=== PATIENT | male | born 1955 | race Hispanic/Latino ===

== ENCOUNTER 2018-11-21 08:06 | Inpatient (IN) | payer MEDICARE ==
[2018-11-21] MEDS ORDERED: ASPIRIN PO ONE (08:22)
[2018-11-21] MEDS ORDERED: ATROVENT IH ONE (08:31)
[2018-11-21] MEDS ORDERED: PROVENTIL IH ONE (08:31)
--- NOTE | 2018-11-21 08:48 | Emergency Department Report ---
HPI - General Chief Complaint: Dyspnea/Respdistress Time Seen by Provider: 11/21/18 08:25 - HPI HPI: 63-year-old male presents to the emergency department by EMS from home with complaint of shortness of breath, wheezing, coughing. He says that it started earlier this week but worsened this morning to the point where he felt like he could not catch his breath. EMS found him to have a pulse ox in the high 80s and he was given a nonrebreather in route. Upon arrival here, he was taken off the nonrebreather and dropped back down again but does improve with nasal cannula as well. He has a past medical history of COPD, CHF, coronary artery disease with previous OH and cardiac stents in place. He is home oxygen dependent but "not 24 hours a day." He has been using his home nebulizer and inhalers without much relief. His primary care physician is Dr. Pool and his firer portable boiler is Dr. John. No recent travel or sick contacts at home. ED Past Medical Hx - Past Medical History Previous Medical History?: Yes Hx Hypertension: Yes Hx Congestive Heart Failure: Yes Hx COPD: Yes - Surgical History Past Surgical History?: Yes Hx Coronary Stent: Yes - Social History Smoking Status: Former Smoker Substance Use Type: None - Medications Home Medications: Home Medications Medication Instructions Recorded Confirmed Last Taken Type AtorvaSTATin [Lipitor] 40 mg PO QHS 11/21/18 11/21/18 11/20/18 History Carvedilol [Coreg] 6.25 mg PO BID 11/21/18 11/21/18 11/20/18 History Digoxin [Lanoxin] 250 mcg PO 11/21/18 11/20/18 History Fluticasone/Salmeterol [Advair 1 each IH 11/21/18 11/20/18 History 250-50 Diskus] Furosemide [Lasix] 20 mg PO QDAY 11/21/18 11/21/18 11/20/18 History Isosorbide Mononitrate 30 mg PO 11/21/18 11/21/18 10:13 History Pantoprazole Sodium 40 mg PO 11/21/18 11/20/18 History Roflumilast [Daliresp] 500 mcg PO QDAY 11/21/18 11/21/18 11/20/18 History Tiotropium [place] [Spiriva 2.5 gm IH 11/21/18 11/20/18 History Respimat] hydrALAZINE [Apresoline] 50 mg PO 11/21/18 11/20/18 History ED Review of Systems ROS: Stated complaint: LOUISA Other details as noted in HPI Comment: All other systems reviewed and negative Constitutional: denies: chills, fever Eyes: denies: eye pain, vision change ENT: denies: ear pain, throat pain Respiratory: cough, shortness of breath, wheezing Cardiovascular: denies: chest pain, palpitations Gastrointestinal: denies: abdominal pain, vomiting Genitourinary: denies: dysuria, frequency Musculoskeletal: denies: back pain, arthralgia Skin: denies: rash, lesions Neurological: denies: headache, weakness Physical Exam - Physical Exam Vital Signs: Vital Signs 11/21/18 08:27 Temperature 98.1 F Pulse Rate 99 H Respiratory 26 H Rate Blood Pressure 132/55 [Left] O2 Sat by Pulse 89 Oximetry Physical Exam: GENERAL: The patient is well-developed well-nourished. HENT: Normocephalic. Atraumatic. Patient has dry mucous membranes. EYES: Extraocular motions are intact. Pupils equal reactive to light bilaterally. NECK: Supple. Trachea is midline. CHEST/LUNGS: Moderate wheezing throughout the chest. There is some tachypnea but no accessory muscle use. There is no respiratory distress noted. HEART/CARDIOVASCULAR: Regular. There is no tachycardia. There is no murmur. ABDOMEN: Abdomen is soft, nontender. Patient has normal bowel sounds. There is no abdominal distention. SKIN: Mild bilateral lower extremity edema. NEURO: The patient is awake, alert, and cooperative. The patient has no focal neurologic deficits. The patient has normal speech. MUSCULOSKELETAL: There is no tenderness or deformity. There is no evidence of acute injury. ED Course Vital Signs 11/21/18 08:27 Temperature 98.1 F Pulse Rate 99 H Respiratory 26 H Rate Blood Pressure 132/55 [Left] O2 Sat by Pulse 89 Oximetry - Consultations Consultation #1: 11/21/18 14:37 I spoke with the property damage claims adjustor on-call, Dr. Cronin, regarding the patient's significant hyponatremia. He recommended giving D5 water at 50 mL per hour and then transitioning to allowing the patient to eat and drink and he will see the patient as a consult. ED Medical Decision Making - Lab Data Result diagrams: 11/21/18 08:33 11/21/18 12:03 - EKG Data -: EKG Interpreted by Me EKG shows normal: sinus rhythm, axis (left axis deviation), intervals (left anterior fascicular block), QRS complexes, ST-T waves (nonspecific ST-T waves) Rate: normal - EKG Data When compared to previous EKG there are: previous EKG unavailable Interpretation: other (sinus rhythm, left axis deviation, left anterior fascicular block) - Radiology Data Radiology results: report reviewed, image reviewed interpreted by me: Chest x-ray does not show any acute process. There are no pleural effusions, obvious pneumonia and there is no pneumothorax. There is hyperinflation of the lungs. PROCEDURE: NM LUNG SCAN PERF/VENT TECHNIQUE: 5 mCi Tc-99m MAA was injected IV for pulmonary perfusion imaging in multiple projections. 15 mCi Xenon-133 was inhaled for pulmonary ventilation imaging in multiple projections. HISTORY: SOB, elevated dimer COMPARISONS: Chest x-ray November 21, 2018. FINDINGS: Ventilation: Heterogeneous Perfusion: Subsegmental small matched perfusion deficits in both lungs. IMPRESSION: * Based on the PIOPED study, findings represent low probability for PE. * Suspect COPD. This document is electronically signed by Saturnino Ariza MD., Nov 21 2018 12:34:06 PM ET Transcribed By: TYM Dictated By: SATURNINO ARIZA MD Electronically Authenticated By: SATURNINO ARIZA MD Signed Date/Time: 11/21/18 123 - Medical Decision Making COPD patient presented to the emergency department with a complaint of some gradually worsening shortness of breath, wheezing and coughing. On examination he does have some moderate bronchospasm but does not appear in any respiratory distress. However the patient had an ABG done that showed significant hypercapnia and respiratory acidosis and the patient was placed on BiPAP. He was given steroids, breathing treatments. Patient's labs show a mild leukocytosis, slightly elevated and equivocal d-dimer and significant hypon atremia. The property damage claims adjustor [employer] examiner was contacted and the patient was started on D5 water and will be seen as a consult. The chest x-ray did not show any acute process. VQ scan was done and came back low probability for a pulmonary embolism. The patient will be admitted to the hospital for further evaluation and treatment and was accepted for admission by the hospitalist, Dr. Kelly. - Differential Diagnosis COPD, PE, asthma, pneumonia Critical Care Time: Yes Critical care time in (mins) excluding proc time.: 35 Critical care attestation.: If time is entered above; I have spent that time in minutes in the direct care of this critically ill patient, excluding procedure time. Medical care time was spent on this patient during his initial evaluation, multiple re-evaluations, ordering an interpretation of labs and imaging, discussion with the property damage claims adjustor and hospitalist services. Critical Care Time: 35 minutes ED Disposition Clinical Impression: COPD with exacerbation, Acute hypernatremia, SIRS (systemic inflammatory response syndrome) Disposition: OP ADMIT IP TO THIS HOSP Is pt being admited?: Yes Condition: Serious Time of Disposition: 14:41
[2018-11-21 09:10] LABS: Hematocrit 35.9 % (35.5-45.6); Mean Corpuscular HGB Conc 31 % (32-34); Mean Corpuscular Volume 73 fl (84-94); Platelet Count 252 K/mm3 (140-440); Red Blood Count 4.91 M/mm3 (3.65-5.03); Red Cell Distribution Width 18.1 % (13.2-15.2)
--- NOTE | 2018-11-21 09:14 | XRay Report ---
PROCEDURE: XR CHEST 1V AP TECHNIQUE: Chest radiograph, AP portable upright view. HISTORY: Chest Pain COMPARISONS: None currently available. FINDINGS: [id number] cardiomegaly. Aortic calcifications. There is no effusion. There is no pneumothorax. There is no consolidation. There are no suspicious osseous lesions. IMPRESSION: * No acute cardiopulmonary findings. This document is electronically signed by Saturnino Gillette MD., Nov 21 2018 09:12:36 AM ET
[2018-11-21 09:33] LABS: BUN/Creatinine Ratio 9; Blood Urea Nitrogen 12 mg/dL (9-20); Calcium 8.6 mg/dL (8.4-10.2); Hemolysis Index 2
[2018-11-21] MEDS ORDERED: D5W 1,000 ML IV SCH ×2 (11:00→13:00)
--- NOTE | 2018-11-21 12:09 | History and Physical Report ---
History of Present Illness Chief complaint: I cant breathe History of present illness: 63 YO Male with HTN, Systolic CHF, COPD, CAD S/P Stent Placement presents to ED for evaluation. Pt states that he has experienced shortness of breath, wheezing, and increased frequency of productive cough with increased production of clear sputum over the past 1 week with worsening symptoms over the past 1 day. Pt has worsening symptoms with increased frequency in use of nebulizer therapy. Pt acknowledges Orthopnea/PND, Decreased exercise tolerance, dypsnea on exertion, dypsnea at rest, as well as leg swelling. Pt was seen and evaluated by Dr. John and treated with outpatient therapy with no improvement in symptoms. EMS notified and upon arrival the patient was found to be in distress. Pt transported to [facility]. Pt seen and evaluated in ED and found to have Acute Respiratory Failure secondary to COPD Exacerbation. Pt also found to have symptoms consistent with CHF decompensation, SIRS and hypernatremia. Pt admitted to telemetry. Cardiology team consulted in ED. Pulmonary team consulted in ED. No prior admission for review. No medication listed for reconciliation at time of admission. Past History Past Medical History: CAD, COPD, heart failure, hypertension Past Surgical History: Other (Cardiac stent placement) Social history: , lives with family Family history: hypertension Medications and Allergies Allergies Allergy/AdvReac Type Severity Reaction Status Date / Time No Known Allergies Allergy Unverified 11/21/18 08:22 Home Medications Medication Instructions Recorded Confirmed Last Taken Type AtorvaSTATin [Lipitor] 40 mg PO QHS 11/21/18 11/21/18 11/20/18 History Carvedilol [Coreg] 6.25 mg PO BID 11/21/18 11/21/18 11/20/18 History Digoxin [Lanoxin] 250 mcg PO 11/21/18 11/20/18 History Fluticasone/Salmeterol [Advair 1 each IH 11/21/18 11/20/18 History 250-50 Diskus] Furosemide [Lasix] 20 mg PO QDAY 11/21/18 11/21/18 11/20/18 History Isosorbide Mononitrate 30 mg PO 11/21/18 11/21/18 10:13 History Pantoprazole Sodium 40 mg PO 11/21/18 11/20/18 History Roflumilast [Daliresp] 500 mcg PO QDAY 11/21/18 11/21/18 11/20/18 History Tiotropium [place] [Spiriva 2.5 gm IH 11/21/18 11/20/18 History Respimat] hydrALAZINE [Apresoline] 50 mg PO 11/21/18 11/20/18 History Active Meds: Active Medications Dextrose (D5w) 1,000 mls @ 50 mls/hr IV DIRECT ANNE Review of Systems Constitutional: no weight loss, no weight gain, no fever, no chills Ears, nose, mouth and throat: no ear pain, no ear discharge, no nose pain, no nasal congestion Cardiovascular: orthopnea, shortness of breath, dyspnea on exertion, paroxysmal nocturnal dyspnea, decreased exercise tolerance, no chest pain, no palpitations Respiratory: cough, cough with sputum, excessive sputum Gastrointestinal: no nausea, no vomiting, no diarrhea, no constipation Genitourinary Male: no hematuria, no flank pain, no discharge, no urinary frequency, no urinary hesitancy Rectal: no pain, no incontinence, no bleeding Musculoskeletal: no neck stiffness, no neck pain, no shooting arm pain, no arm numbness/tingling, no low back pain, no shooting leg pain Integumentary: no rash, no pruritis, no redness, no wounds Neurological: no paralysis, no weakness, no parathesias, no tingling Psychiatric: no memory loss, no change in sleep habits, no sleep disturbances, no insomnia, no change in appetite, no change in libido, no suicidal ideation Endocrine: no heat intolerance, no polyphagia, no excessive thirst, no polydipsia, no polyuria, no nocturia Hematologic/Lymphatic: no easy bruising, no easy bleeding Allergic/Immunologic: no urticaria, no allergic rhinitis, no wheezing Exam - Constitutional Vitals: Temp Pulse Resp BP Pulse Ox 98.1 F 80 24 160/70 96 11/21/18 08:27 11/21/18 09:43 11/21/18 09:43 11/21/18 09:43 11/21/18 09:43 General appearance: Present: mild distress - EENT Eyes: Present: PERRL ENT: hearing intact, clear oral mucosa - Neck Neck: Present: supple, normal ROM - Respiratory Respiratory effort: labored Respiratory: bilateral: diminished, rhonchi - Extremities Extremities: pulses symmetrical Extremity abnormal: edema Peripheral Pulses: within normal limits - Abdominal General gastrointestinal: Present: soft, non-tender, non-distended, normal bowel sounds Male genitourinary: Present: normal - Integumentary Integumentary: Present: clear, warm, dry - Psychiatric Psychiatric: appropriate mood/affect, intact judgment & insight - Neurologic Neurologic: CNII-XII intact, moves all extremities Results - Labs CBC & Chem 7: 11/21/18 08:33 11/21/18 12:03 Labs: Abnormal lab results 11/21/18 11/21/18 11/21/18 Range/Units 08:33 08:33 08:33 WBC 13.3 H (4.5-11.0) K/mm3 Hgb 11.0 L (11.8-15.2) gm/dl MCV 73 L (84-94) fl MCH 22 L (28-32) pg MCHC 31 L (32-34) % RDW 18.1 H (13.2-15.2) % D-Dimer 369.06 H (0-234) ng/mlDDU POC ABG pH (7.35-7.45) POC ABG pCO2 (35-45) POC ABG pO2 (80-105) Sodium 174 H* (137-145) mmol/L Potassium 5.3 H (3.6-5.0) mmol/L Chloride 128.8 H (98-107) mmol/L Carbon Dioxide 31 H (22-30) mmol/L Glucose 130 H (75-100) mg/dL NT-Pro-B Natriuret Pep (0-900) pg/mL 11/21/18 11/21/18 Range/Units 08:33 08:47 WBC (4.5-11.0) K/mm3 Hgb (11.8-15.2) gm/dl MCV (84-94) fl MCH (28-32) pg MCHC (32-34) % RDW (13.2-15.2) % D-Dimer (0-234) ng/mlDDU POC ABG pH 7.289 L (7.35-7.45) POC ABG pCO2 69.9 H (35-45) POC ABG pO2 73 L (80-105) Sodium (137-145) mmol/L Potassium (3.6-5.0) mmol/L Chloride (98-107) mmol/L Carbon Dioxide (22-30) mmol/L Glucose (75-100) mg/dL NT-Pro-B Natriuret Pep 1570 H (0-900) pg/mL Assessment and Plan - Patient Problems (1) CHF (congestive heart failure) Current Visit: Yes Status: Acute Qualifiers: Heart failure type: systolic Heart failure chronicity: acute Qualified Code(s): I50.21 - Acute systolic (congestive) heart failure Plan to address problem: CHF Protocol: Admit to telemetry, strict I/O, daily weight, monitor uop q shift, afterload reduction, cardiology consulted in ED, BNP, pulse oximetry, (2) SIRS (systemic inflammatory response syndrome) Current Visit: Yes Status: Acute Plan to address problem: IV antibiotic therapy, urinalysis, CBC, CMP, chest x ray, repeat CBC in AM. (3) Respiratory failure Current Visit: Yes Status: Acute Qualifiers: Chronicity: acute Respiratory failure complication: hypoxia Qualified Code(s): J96.01 - Acute respiratory failure with hypoxia Plan to address problem: Supplemental oxygen, nebulizer therapy, pulse oximetry, chest x ray, NIPPV, ABG. Pulmonary team consulted in ED, d dimer, VQ Scan (4) Hypernatremia Current Visit: Yes Status: Acute Plan to address problem: IVF resuscitation therapy, monitor uop q shift, Nephrology consulted in ED (5) COPD with exacerbation Current Visit: Yes Status: Acute Plan to address problem: Supplemental oxygen, NIPPV, ABG, Chest x ray, pulse oximetry, IV antibiotic therapy, IV steroid therapy, (6) DVT prophylaxis Current Visit: Yes Status: Acute Plan to address problem: SCD to BLE while in bed,
[2018-11-21] MEDS ORDERED: TYLENOL PO PRN (12:11)
[2018-11-21] MEDS ORDERED: ZOFRAN IV PRN (12:11)
[2018-11-21] MEDS ORDERED: PROVENTIL IH PRN (12:11)
[2018-11-21 12:22] LABS: Basophils % (Manual) 0 % (0.0-1.8); Eosinophils % (Manual) 0 % (0.0-4.3); Total Cells Counted 100
[2018-11-21 12:25] LABS: Platelet Estimate Consistent w Auto
--- NOTE | 2018-11-21 12:35 | Nuclear Medicine Report ---
PROCEDURE: NM LUNG SCAN PERF/VENT TECHNIQUE: 5 mCi Tc-99m MAA was injected IV for pulmonary perfusion imaging in multiple projections. 15 mCi Xenon-133 was inhaled for pulmonary ventilation imaging in multiple projections. HISTORY: SOB, elevated dimer COMPARISONS: Chest x-ray November 21, 2018. FINDINGS: Ventilation: Heterogeneous Perfusion: Subsegmental small matched perfusion deficits in both lungs. IMPRESSION: * Based on the PIOPED study, findings represent low probability for PE. * Suspect COPD. This document is electronically signed by Saturnino Gillette MD., Nov 21 2018 12:34:06 PM ET
--- NOTE | 2018-11-21 12:36 | Consultation ---
History of Present Illness - Reason for Consult Consult date: 11/21/18 acute renal failure, hypernatremia - History of Present Illness the patient is a 63 year old male with COPD was admitted today for worseening SOB, he required BIPAP in the ED for severe hypercappnia but since admission his sx slowly improved and he is off BIPAP, he was noted to have severe hypernatremia and renal consult was requested. he denies sx pf diabetes insipidus such as polyuria and excessive thirst Past History Past Medical History: COPD, hypertension Medications and Allergies Allergies Allergy/AdvReac Type Severity Reaction Status Date / Time No Known Allergies Allergy Unverified 11/21/18 08:22 Home Medications Medication Instructions Recorded Confirmed Last Taken Type AtorvaSTATin [Lipitor] 40 mg PO QHS 11/21/18 11/21/18 11/20/18 History Carvedilol [Coreg] 6.25 mg PO BID 11/21/18 11/21/18 11/20/18 History Digoxin [Lanoxin] 187.5 mcg PO 11/21/18 11/20/18 History Fluticasone/Salmeterol [Advair 1 each IH 11/21/18 11/20/18 History 250-50 Diskus] Furosemide [Lasix] 20 mg PO QDAY 11/21/18 11/21/18 11/20/18 History Isosorbide Mononitrate 30 mg PO 11/21/18 11/21/18 10:13 History Pantoprazole Sodium 40 mg PO 11/21/18 11/20/18 History Roflumilast [Daliresp] 500 mcg PO QDAY 11/21/18 11/21/18 11/20/18 History Tiotropium [place] [Spiriva 2.5 gm IH 11/21/18 11/20/18 History Respimat] hydrALAZINE [Apresoline] 50 mg PO 11/21/18 11/20/18 History Active Meds: Active Medications Acetaminophen (Tylenol) 650 mg PO Q4H PRN PRN Reason: Pain MILD(1-3)/Fever >100.5/BLOOM Albuterol (Proventil) 2.5 mg IH Q4HRT PRN PRN Reason: Shortness Of Breath Atorvastatin Calcium (Lipitor) 40 mg PO QHS ANNE Famotidine (Pepcid) 20 mg PO BID ANNE Furosemide (Lasix) 20 mg IV BID@0600,1800 ANNE Dextrose (D5w) 1,000 mls @ 50 mls/hr IV DIRECT ANNE Sodium Chloride (Nacl 0.45% 1000 Ml) 1,000 mls @ 42 mls/hr IV DIRECT ANNE Azithromycin 500 mg/ Sodium (Chloride) 250 mls @ 250 mls/hr IV Q24HR ANNE Dextrose (D5w) 1,000 mls @ 125 mls/hr IV DIRECT ANNE Methylprednisolone Sodium Succinate (Solu-Medrol) 40 mg IV Q12HR ANNE Miscellaneous Medication (Digoxin [Lanoxin]) 187.5 mcg PO DAILY ANNE Miscellaneous Medication (Roflumilast [Daliresp]) 500 mcg PO QDAY ANNE Ondansetron HCl (Zofran) 4 mg IV Q8H PRN PRN Reason: Nausea And Vomiting Pantoprazole Sodium (Protonix) 40 mg PO DAILY ANNE Sodium Chloride (Sodium Chloride Flush Syringe 10 Ml) 10 ml IV BID ANNE Sodium Chloride (Sodium Chloride Flush Syringe 10 Ml) 10 ml IV PRN PRN PRN Reason: LINE FLUSH Review of Systems All systems: negative (SOB, weakness) Exam - Vital Signs Vital signs: Vital Signs Temp Pulse Resp BP Pulse Ox 98.1 F 99 H 26 H 132/55 89 11/21/18 08:27 11/21/18 08:27 11/21/18 08:27 11/21/18 08:27 11/21/18 08:27 - General Appearance General appearance: well-developed, well-nourished EENT: ATNC, PERRL, mucous membranes dry Neck: Present: neck supple Respiratory: Ronchi, Wheezes, Decreased Breath Sounds Heart: regular, S1S2 Gastrointestinal: Present: normoactive bowel sounds. Absent: tenderness, distended Integumentary: no rash, warm and dry Neurologic: no focal deficit, no asterixis, alert and oriented x3 Musculoskeletal: Present: other (no edema in BLE) Psychiatric: mood/affect appropriate, cooperative Results - Lab Results 11/21/18 08:33 11/21/18 08:33 Most recent lab results Calcium 8.6 mg/dL (8.4-10.2) 11/21/18 08:33 Assessment and Plan Hyper-osm hypernatremia, likely due to low water intake, but will r/o DI Acute kidney injury, likely prerenal Azotemia COPD exacerbation history of CHF - total water deficit is around 12 L, will start D5W 125 cc/h which should not correct more than 10 mmol/ml, D5W should not also expand intravascular volume significantly - Na check Q6H - neuro checks - will check urine osm and lytes - strict I&O - daily weight - renally dose meds Jose Cronin MD [phone]
[2018-11-21 12:45] LABS: BUN/Creatinine Ratio 10; Blood Urea Nitrogen 11 mg/dL (9-20); Calcium 8.1 mg/dL (8.4-10.2); Hemolysis Index 12
[2018-11-21] MEDS ORDERED: NACL 0.45% 1000 ML 1,000 ML IV SCH (13:00)
[2018-11-21] MEDS ORDERED: LANOXIN PO SCH (17:00)
[2018-11-21] MEDS ORDERED: LASIX ONE ×2 (18:42→18:46)
[2018-11-21] MEDS: LASIX IV SCH (18:47)
--- NOTE | 2018-11-21 20:02 | Consultation ---
History of Present Illness Consult date: 11/21/18 Consult reason: shortness of breath History of present illness: Patient is having shortness of breath for last few days, has underlying lung disease being followed by Dr. John. He was evaluated a few days ago by Dr. John and was given antibiotics, however is still getting short of breath, hence he was evaluated in the emergency room was found to have hypercapnic respiratory failure. Patient is on BiPAP and is feeling better. Patient also was found to be hypernatremic. Chest x-ray done in the emergency room was unremarkable. We were called in consultation for evaluation of possible congestive heart failure. Patient denies any chest pain. Patient being followed in our office by Dr. Nora Ortega According to him and was last seen in June. However is not having any cardiac symptoms recently. EKG done in the emergency room showed sinus rhythm, left anterior fascicular block, diffuse nonspecific ST-T changes were noted. Past History Past Medical History: CAD, COPD, heart failure, hypertension Past Surgical History: Other (Cardiac stent placement) Social history: , lives with family Family history: hypertension Medications and Allergies Allergies Allergy/AdvReac Type Severity Reaction Status Date / Time No Known Allergies Allergy Unverified 11/21/18 08:22 Home Medications Medication Instructions Recorded Confirmed Last Taken Type AtorvaSTATin [Lipitor] 40 mg PO QHS 11/21/18 11/21/18 11/20/18 History Carvedilol [Coreg] 6.25 mg PO BID 11/21/18 11/21/18 11/20/18 History Digoxin [Lanoxin] 250 mcg PO 11/21/18 11/20/18 History Fluticasone/Salmeterol [Advair 1 each 11/21/18 11/20/18 History 250-50 Diskus] Furosemide [Lasix] 20 mg PO QDAY 11/21/18 11/21/18 11/20/18 History Isosorbide Mononitrate 30 mg PO 11/21/18 11/21/18 10:13 History Pantoprazole Sodium 40 mg PO 11/21/18 11/20/18 History Roflumilast [Daliresp] 500 mcg PO QDAY 11/21/18 11/21/18 11/20/18 History Tiotropium Dumont [Spiriva 2.5 gm 11/21/18 11/20/18 History Respimat] hydrALAZINE [Apresoline] 50 mg PO 11/21/18 11/20/18 History Active Meds: Active Medications Acetaminophen (Tylenol) 650 mg PO Q4H PRN PRN Reason: Pain MILD(1-3)/Fever >100.5/BLOOM Albuterol (Proventil) 2.5 mg IH Q4HRT PRN PRN Reason: Shortness Of Breath Atorvastatin Calcium (Lipitor) 40 mg PO QHS ANNE Famotidine (Pepcid) 20 mg PO BID ANNE Furosemide (Lasix) 20 mg IV BID@0600,1800 [facility] Last Admin: 11/21/18 18:47 Dose: 20 mg Documented by: Dextrose (D5w) 1,000 mls @ 50 mls/hr IV DIRECT ANNE Last Admin: 11/21/18 12:34 Dose: 50 mls/hr Documented by: Sodium Chloride (Nacl 0.45% 1000 Ml) 1,000 mls @ 42 mls/hr IV DIRECT ANNE Azithromycin 500 mg/ Sodium (Chloride) 250 mls @ 250 mls/hr IV Q24HR ANNE Dextrose (D5w) 1,000 mls @ 125 mls/hr IV DIRECT ANNE Methylprednisolone Sodium Succinate (Solu-Medrol) 40 mg IV Q12HR [facility] Miscellaneous Medication (Roflumilast [Daliresp]) 500 mcg PO QDAY ANNE Ondansetron HCl (Zofran) 4 mg IV Q8H PRN PRN Reason: Nausea And Vomiting Pantoprazole Sodium (Protonix) 40 mg PO DAILY [facility] Sodium Chloride (Sodium Chloride Flush Syringe 10 Ml) 10 ml IV BID ANNE Sodium Chloride (Sodium Chloride Flush Syringe 10 Ml) 10 ml IV PRN PRN PRN Reason: LINE FLUSH Review of Systems Ears, nose, mouth and throat: no ear discharge Cardiovascular: orthopnea, dyspnea on exertion, decreased exercise tolerance, no chest pain, no leg edema Respiratory: cough with sputum Gastrointestinal: no abdominal pain Genitourinary Male: no hematuria Musculoskeletal: no frequent falls Integumentary: no rash Neurological: no head injury Psychiatric: no disorientation Endocrine: no cold intolerance Hematologic/Lymphatic: no easy bruising Allergic/Immunologic: no urticaria Physical Examination Vital Signs Pulse 100 H 11/21/18 08:18 General appearance: mild distress (using BiPap.) HEENT: Positive: PERRL Neck: Positive: trachea midline Cardiac: Positive: Reg Rate and Rhythm. Negative: Audible Murmur Lungs: Positive: Decreased Breath Sounds Neuro: Positive: Grossly Intact Abdomen: Positive: Unremarkable Male genitourinary: Positive: deferred Skin: Negative: Rash Extremities: Absent: edema Results 11/21/18 08:33 11/21/18 18:34 CBC 11/21/18 Range/Units 08:33 WBC 13.3 H (4.5-11.0) K/mm3 RBC 4.91 (3.65-5.03) M/mm3 Hgb 11.0 L (11.8-15.2) gm/dl Hct 35.9 (35.5-45.6) % Plt Count 252 (140-440) K/mm3 Comprehensive Metabolic Panel 11/21/18 11/21/18 11/21/18 Range/Units 08:33 12:03 15:12 Sodium 174 H* 139 D 139 (137-145) mmol/L Potassium 5.3 H 4.9 (3.6-5.0) mmol/L Chloride 128.8 H 96.2 L (98-107) mmol/L Carbon Dioxide 31 H 31 H (22-30) mmol/L BUN 12 11 (9-20) mg/dL Creatinine 1.3 1.1 (0.8-1.5) mg/dL Glucose 130 H 112 H (75-100) mg/dL Calcium 8.6 8.1 L (8.4-10.2) mg/dL 11/21/18 Range/Units 18:34 Sodium 139 (137-145) mmol/L Potassium (3.6-5.0) mmol/L Chloride (98-107) mmol/L Carbon Dioxide (22-30) mmol/L BUN (9-20) mg/dL Creatinine (0.8-1.5) mg/dL Glucose (75-100) mg/dL Calcium (8.4-10.2) mg/dL EKG interpretations - Telemetry EKG Rhythm: Sinus Rhythm (EKG done in the emergency room showed sinus rhythm, left anterior fascicular block, diffuse nonspecific ST-T changes.) Assessment and Plan Patient's shortness of breath mostly appears to be related to his underlying lung problem. Superimposed diastolic heart failure cannot be excluded. Chest x-ray was unremarkable. And is responding well to BiPAP and his future treatments. Will continue the same. Patient is a underlying hypernatremia being corrected with D5W. EKG showing sinus rhythm and nonspecific ST-T changes. Patient was noted to have significant respiratory stenosis and hypercapnia at the time of presentation. This can be causing these changes. Will get serial enzymes. Cardiac-murray stable at this point. We'll get an echocardiogram considering his shortness of breath. - Patient Problems (1) Acute hypernatremia Current Visit: Yes Status: Acute (2) COPD with exacerbation Current Visit: Yes Status: Acute (3) Respiratory failure Current Visit: Yes Status: Acute Qualifiers: Chronicity: acute Respiratory failure complication: hypoxia Qualified Code(s): J96.01 - Acute respiratory failure with hypoxia (4) SIRS (systemic inflammatory response syndrome) Current Visit: Yes Status: Acute
[2018-11-21 22:46] LABS: Bilirubin,Urine NEG (Negative); Blood,Urine SM (Negative); Color,Urine Straw (Yellow); Hyaline Casts,Urine 1 /LPF; Mucus,Urine FEW /HPF; Protein,Urine <15 mg/dL mg/dL (Negative); Urobilinogen,Urine < 2.0 mg/dL (<2.0)
[2018-11-21 22:49] LABS: RBC,Urine < 1.0 /HPF (0.0-6.0)
[2018-11-21 23:06] LABS: Creatinine,Urine 30.5 mg/dL (0.1-20.0)
[2018-11-21] MEDS ORDERED: PEPCID ONE (23:22)
[2018-11-21] MEDS ORDERED: SOLU-Medrol ONE (23:22)
[2018-11-21] MEDS: PEPCID PO SCH (23:23)
[2018-11-21] MEDS: SODIUM CHLORIDE FLUSH SYRINGE 10 ML IV SCH (23:23)
[2018-11-21] MEDS: SOLU-Medrol IV SCH (23:24)
--- NOTE | 2018-11-21 23:47 | Event Note ---
downgrade to tele, off BIPAP
--- NOTE | 2018-11-21 23:47 | History and Physical Report ---
History of Present Illness Date of admission: 11/21/18 13:24 Past History Past Medical History: CAD, COPD, heart failure, hypertension Past Surgical History: Other (Cardiac stent placement) Social history: , lives with family Family history: hypertension Medications and Allergies Allergies Allergy/AdvReac Type Severity Reaction Status Date / Time No Known Allergies Allergy Unverified 11/21/18 08:22 Home Medications Medication Instructions Recorded Confirmed Last Taken Type AtorvaSTATin [Lipitor] 40 mg PO QHS 11/21/18 11/21/18 11/20/18 History Carvedilol [Coreg] 6.25 mg PO BID 11/21/18 11/21/18 11/20/18 History Digoxin [Lanoxin] 250 mcg PO 11/21/18 11/20/18 History Fluticasone/Salmeterol [Advair 1 each IH 11/21/18 11/20/18 History 250-50 Diskus] Furosemide [Lasix] 20 mg PO QDAY 11/21/18 11/21/18 11/20/18 History Isosorbide Mononitrate 30 mg PO 11/21/18 11/21/18 10:13 History Pantoprazole Sodium 40 mg PO 11/21/18 11/20/18 History Roflumilast [Daliresp] 500 mcg PO QDAY 11/21/18 11/21/18 11/20/18 History Tiotropium Leopold [Spiriva 2.5 gm IH 11/21/18 11/20/18 History Respimat] hydrALAZINE [Apresoline] 50 mg PO 11/21/18 11/20/18 History Active Meds: Active Medications Acetaminophen (Tylenol) 650 mg PO Q4H PRN PRN Reason: Pain MILD(1-3)/Fever >100.5/BLOOM Albuterol (Proventil) 2.5 mg IH Q4HRT PRN PRN Reason: Shortness Of Breath Atorvastatin Calcium (Lipitor) 40 mg PO QHS [facility] Last Admin: 11/21/18 23:23 Dose: 40 mg Documented by: Famotidine (Pepcid) 20 mg PO BID [facility] Last Admin: 11/21/18 23:23 Dose: 20 mg Documented by: Furosemide (Lasix) 20 mg IV BID@0600,1800 [facility] Last Admin: 11/21/18 18:47 Dose: 20 mg Documented by: Dextrose (D5w) 1,000 mls @ 50 mls/hr IV DIRECT ANNE Last Admin: 11/21/18 12:34 Dose: 50 mls/hr Documented by: Sodium Chloride (Nacl 0.45% 1000 Ml) 1,000 mls @ 42 mls/hr IV DIRECT ANNE Azithromycin 500 mg/ Sodium (Chloride) 250 mls @ 250 mls/hr IV Q24HR ANNE Dextrose (D5w) 1,000 mls @ 125 mls/hr IV DIRECT ANNE Methylprednisolone Sodium Succinate (Solu-Medrol) 40 mg IV Q12HR [facility] Last Admin: 11/21/18 23:24 Dose: 40 mg Documented by: Miscellaneous Medication (Roflumilast [Daliresp]) 500 mcg PO QDAY [facility] Ondansetron HCl (Zofran) 4 mg IV Q8H PRN PRN Reason: Nausea And Vomiting Pantoprazole Sodium (Protonix) 40 mg PO DAILY [facility] Sodium Chloride (Sodium Chloride Flush Syringe 10 Ml) 10 ml IV BID [facility] Last Admin: 11/21/18 23:23 Dose: 10 ml Documented by: Sodium Chloride (Sodium Chloride Flush Syringe 10 Ml) 10 ml IV PRN PRN PRN Reason: LINE FLUSH Exam - Constitutional Vitals: Temp Pulse Resp BP Pulse Ox 98.1 F 81 16 126/61 97 11/21/18 08:27 11/21/18 22:59 11/21/18 22:59 11/21/18 22:59 11/21/18 22:59 Results - Labs CBC & Chem 7: 11/21/18 08:33 11/21/18 18:34 Labs: Abnormal lab results 11/21/18 11/21/18 11/21/18 Range/Units 08:33 08:33 08:33 WBC 13.3 H (4.5-11.0) K/mm3 Hgb 11.0 L (11.8-15.2) gm/dl MCV 73 L (84-94) fl MCH 22 L (28-32) pg MCHC 31 L (32-34) % RDW 18.1 H (13.2-15.2) % Seg Neuts % (Manual) 96.0 H (40.0-70.0) % Lymphocytes % (Manual) 2.0 L (13.4-35.0) % Seg Neutrophils # Man 12.8 H (1.8-7.7) K/mm3 Lymphocytes # (Manual) 0.3 L (1.2-5.4) K/mm3 D-Dimer 369.06 H (0-234) ng/mlDDU POC ABG pH (7.35-7.45) POC ABG pCO2 (35-45) POC ABG pO2 (80-105) Sodium 174 H* (137-145) mmol/L Potassium 5.3 H (3.6-5.0) mmol/L Chloride 128.8 H (98-107) mmol/L Carbon Dioxide 31 H (22-30) mmol/L Glucose 130 H (75-100) mg/dL Calcium (8.4-10.2) mg/dL NT-Pro-B Natriuret Pep (0-900) pg/mL Urine Creatinine (0.1-20.0) mg/dL 11/21/18 11/21/18 11/21/18 Range/Units 08:33 08:47 12:03 WBC (4.5-11.0) K/mm3 Hgb (11.8-15.2) gm/dl MCV (84-94) fl MCH (28-32) pg MCHC (32-34) % RDW (13.2-15.2) % Seg Neuts % (Manual) (40.0-70.0) % Lymphocytes % (Manual) (13.4-35.0) % Seg Neutrophils # Man (1.8-7.7) K/mm3 Lymphocytes # (Manual) (1.2-5.4) K/mm3 D-Dimer (0-234) ng/mlDDU POC ABG pH 7.289 L (7.35-7.45) POC ABG pCO2 69.9 H (35-45) POC ABG pO2 73 L (80-105) Sodium (137-145) mmol/L Potassium (3.6-5.0) mmol/L Chloride 96.2 L (98-107) mmol/L Carbon Dioxide 31 H (22-30) mmol/L Glucose 112 H (75-100) mg/dL Calcium 8.1 L (8.4-10.2) mg/dL NT-Pro-B Natriuret Pep 1570 H (0-900) pg/mL Urine Creatinine (0.1-20.0) mg/dL 11/21/18 11/21/18 Range/Units 14:37 22:07 WBC (4.5-11.0) K/mm3 Hgb (11.8-15.2) gm/dl MCV (84-94) fl MCH (28-32) pg MCHC (32-34) % RDW (13.2-15.2) % Seg Neuts % (Manual) (40.0-70.0) % Lymphocytes % (Manual) (13.4-35.0) % Seg Neutrophils # Man (1.8-7.7) K/mm3 Lymphocytes # (Manual) (1.2-5.4) K/mm3 D-Dimer (0-234) ng/mlDDU POC ABG pH 7.332 L (7.35-7.45) POC ABG pCO2 62.8 H (35-45) POC ABG pO2 79 L (80-105) Sodium (137-145) mmol/L Potassium (3.6-5.0) mmol/L Chloride (98-107) mmol/L Carbon Dioxide (22-30) mmol/L Glucose (75-100) mg/dL Calcium (8.4-10.2) mg/dL NT-Pro-B Natriuret Pep (0-900) pg/mL Urine Creatinine 30.5 H (0.1-20.0) mg/dL
[2018-11-22 06:12] LABS: BUN/Creatinine Ratio 13; Blood Urea Nitrogen 12 mg/dL (9-20); Calcium 8.9 mg/dL (8.4-10.2); Hemolysis Index 11
[2018-11-22 06:20] LABS: Hematocrit 37.2 % (35.5-45.6); Hemoglobin 11.7 gm/dl (11.8-15.2); Mean Corpuscular HGB Conc 32 % (32-34); Mean Corpuscular Volume 72 fl (84-94); Platelet Count 234 K/mm3 (140-440); Red Blood Count 5.17 M/mm3 (3.65-5.03); Red Cell Distribution Width 17.8 % (13.2-15.2)
[2018-11-22] MEDS: LASIX IV SCH ×2 (08:01→17:16)
[2018-11-22 08:18] LABS: Basophils % (Manual) 0 % (0.0-1.8); Eosinophils % (Manual) 0 % (0.0-4.3); Platelet Estimate Consistent w Auto; Tear Drop Cells Few; Total Cells Counted 100
--- NOTE | 2018-11-22 09:19 | Progress Note ---
Assessment and Plan - Patient Problems (1) CHF (congestive heart failure) Exacerbation Current Visit: Yes Status: Acute Qualifiers: Heart failure type: systolic Heart failure chronicity: acute Qualified Code(s): I50.21 - Acute systolic (congestive) heart failure Plan to address problem: Improving ECHO ordered (2) SIRS (systemic inflammatory response syndrome) Current Visit: Yes Status: Acute Plan to address problem: IV antibiotic therapy, urinalysis, CBC, CMP, chest x ray, repeat CBC in AM. (3) Respiratory failure Current Visit: Yes Status: Acute Qualifiers: Chronicity: acute Respiratory failure complication: hypoxia Qualified Code(s): J96.01 - Acute respiratory failure with hypoxia Plan to address problem: Supplemental oxygen, nebulizer therapy, pulse oximetry, chest x ray, NIPPV, ABG. Pulmonary team consulted in ED, d dimer, VQ Scan (4) Hypernatremia Current Visit: Yes Status: Acute Plan to address problem: IVF resuscitation therapy, monitor uop q shift, Nephrology consulted in ED (5) COPD with exacerbation Current Visit: Yes Status: Acute Plan to address problem: Supplemental oxygen, NIPPV, ABG, Chest x ray, pulse oximetry, IV antibiotic therapy, IV steroid therapy, (6) DVT prophylaxis Current Visit: Yes Status: Acute Plan to address problem: SCD to BLE while in bed, Subjective Date of service: 11/22/18 Principal diagnosis: CHF exacerbation Interval history: Admitted for CHF and COPD exacerbation--Symptomatically better Objective - Constitutional Vitals: Vital Signs - 12hr 11/21/18 11/21/18 11/21/18 21:21 21:31 21:41 Temperature Pulse Rate 79 83 Pulse Rate [ Anterior Bilateral Throughout] Respiratory 16 15 Rate Respiratory Rate [Anterior Bilateral Throughout] Blood Pressure 143/65 143/65 143/65 Blood Pressure [Left] O2 Sat by Pulse 96 97 95 Oximetry 11/21/18 11/21/18 11/21/18 21:51 22:00 22:11 Temperature Pulse Rate 83 81 83 Pulse Rate [ Anterior Bilateral Throughout] Respiratory 14 16 15 Rate Respiratory Rate [Anterior Bilateral Throughout] Blood Pressure 143/65 126/61 126/61 Blood Pressure [Left] O2 Sat by Pulse 96 98 96 Oximetry 11/21/18 11/21/18 11/21/18 22:21 22:31 22:41 Temperature Pulse Rate Pulse Rate [ Anterior Bilateral Throughout] Respiratory Rate Respiratory Rate [Anterior Bilateral Throughout] Blood Pressure 126/61 126/61 126/61 Blood Pressure [Left] O2 Sat by Pulse 94 98 98 Oximetry 11/21/18 11/21/18 11/21/18 22:51 22:59 23:00 Temperature Pulse Rate 81 80 Pulse Rate [ Anterior Bilateral Throughout] Respiratory 16 14 Rate Respiratory Rate [Anterior Bilateral Throughout] Blood Pressure 126/61 149/65 Blood Pressure 126/61 [Left] O2 Sat by Pulse 98 97 96 Oximetry 11/21/18 11/21/18 11/21/18 23:11 23:21 23:31 Temperature Pulse Rate 80 Pulse Rate [ Anterior Bilateral Throughout] Respiratory 13 Rate Respiratory Rate [Anterior Bilateral Throughout] Blood Pressure 149/65 149/65 149/65 Blood Pressure [Left] O2 Sat by Pulse 97 95 94 Oximetry 11/21/18 11/21/18 11/22/18 23:41 23:51 00:01 Temperature Pulse Rate Pulse Rate [ Anterior Bilateral Throughout] Respiratory Rate Respiratory Rate [Anterior Bilateral Throughout] Blood Pressure 149/65 149/65 141/57 Blood Pressure [Left] O2 Sat by Pulse 96 96 92 Oximetry 11/22/18 11/22/18 11/22/18 00:11 00:21 00:31 Temperature Pulse Rate Pulse Rate [ Anterior Bilateral Throughout] Respiratory Rate Respiratory Rate [Anterior Bilateral Throughout] Blood Pressure 141/57 141/57 141/57 Blood Pressure [Left] O2 Sat by Pulse 96 96 95 Oximetry 11/22/18 11/22/18 11/22/18 00:36 00:53 01:20 Temperature 98.4 F Pulse Rate 87 89 88 Pulse Rate [ Anterior Bilateral Throughout] Respiratory 19 22 Rate Respiratory Rate [Anterior Bilateral Throughout] Blood Pressure 92/70 Blood Pressure 141/57 [Left] O2 Sat by Pulse 96 93 Oximetry 11/22/18 11/22/18 11/22/18 01:31 01:45 02:40 Temperature Pulse Rate 84 Pulse Rate [ 97 H Anterior Bilateral Throughout] Respiratory 22 20 Rate Respiratory 22 Rate [Anterior Bilateral Throughout] Blood Pressure Blood Pressure [Left] O2 Sat by Pulse 92 93 Oximetry 11/22/18 11/22/18 11/22/18 02:50 02:53 04:17 Temperature 98.4 F Pulse Rate 87 85 Pulse Rate [ 90 Anterior Bilateral Throughout] Respiratory 20 21 Rate Respiratory 20 Rate [Anterior Bilateral Throughout] Blood Pressure 133/71 Blood Pressure [Left] O2 Sat by Pulse 92 90 Oximetry 11/22/18 11/22/18 08:16 08:37 Temperature 98.0 F Pulse Rate Pulse Rate [ Anterior Bilateral Throughout] Respiratory 18 18 Rate Respiratory Rate [Anterior Bilateral Throughout] Blood Pressure 130/64 Blood Pressure [Left] O2 Sat by Pulse Oximetry General appearance: Present: no acute distress, well-nourished - EENT Eyes: PERRL, EOM intact ENT: hearing intact, clear oral mucosa Ears: bilateral: normal - Neck Neck: supple, normal ROM - Respiratory Respiratory effort: normal Respiratory: bilateral: CTA, rales - Breasts Breasts: normal - Cardiovascular Heart rate: 78 Rhythm: regular Heart Sounds: Present: S1 & S2. Absent: gallop, rub Extremities: pulses intact, No edema, normal color, Full ROM - Gastrointestinal General gastrointestinal: Present: soft, non-tender, non-distended, normal bowel sounds - Genitourinary Male genitourinary: normal - Integumentary Integumentary: clear, warm, dry - Musculoskeletal Musculoskeletal: 1, strength equal bilaterally - Neurologic Neurologic: moves all extremities - Psychiatric Psychiatric: memory intact, appropriate mood/affect, intact judgment & insight - Labs CBC & Chem 7: 11/23/18 04:34 11/23/18 04:34 Labs: Abnormal lab results 11/21/18 11/21/18 11/21/18 Range/Units 08:33 08:33 08:33 WBC (4.5-11.0) K/mm3 RBC (3.65-5.03) M/mm3 Hgb (11.8-15.2) gm/dl MCV (84-94) fl MCH (28-32) pg RDW (13.2-15.2) % Seg Neuts % (Manual) 96.0 H (40.0-70.0) % Lymphocytes % (Manual) 2.0 L (13.4-35.0) % Seg Neutrophils # Man 12.8 H (1.8-7.7) K/mm3 Lymphocytes # (Manual) 0.3 L (1.2-5.4) K/mm3 D-Dimer 369.06 H (0-234) ng/mlDDU POC ABG pH (7.35-7.45) POC ABG pCO2 (35-45) POC ABG pO2 (80-105) Sodium 174 H* (137-145) mmol/L Potassium 5.3 H (3.6-5.0) mmol/L Chloride 128.8 H (98-107) mmol/L Carbon Dioxide 31 H (22-30) mmol/L Glucose 130 H (75-100) mg/dL Calcium (8.4-10.2) mg/dL NT-Pro-B Natriuret Pep (0-900) pg/mL Urine Creatinine (0.1-20.0) mg/dL 11/21/18 11/21/18 11/21/18 Range/Units 08:33 12:03 14:37 WBC (4.5-11.0) K/mm3 RBC (3.65-5.03) M/mm3 Hgb (11.8-15.2) gm/dl MCV (84-94) fl MCH (28-32) pg RDW (13.2-15.2) % Seg Neuts % (Manual) (40.0-70.0) % Lymphocytes % (Manual) (13.4-35.0) % Seg Neutrophils # Man (1.8-7.7) K/mm3 Lymphocytes # (Manual) (1.2-5.4) K/mm3 D-Dimer (0-234) ng/mlDDU POC ABG pH 7.332 L (7.35-7.45) POC ABG pCO2 62.8 H (35-45) POC ABG pO2 79 L (80-105) Sodium (137-145) mmol/L Potassium (3.6-5.0) mmol/L Chloride 96.2 L (98-107) mmol/L Carbon Dioxide 31 H (22-30) mmol/L Glucose 112 H (75-100) mg/dL Calcium 8.1 L (8.4-10.2) mg/dL NT-Pro-B Natriuret Pep 1570 H (0-900) pg/mL Urine Creatinine (0.1-20.0) mg/dL 11/21/18 11/22/18 11/22/18 Range/Units 22:07 04:32 04:32 WBC 15.0 H (4.5-11.0) K/mm3 RBC 5.17 H (3.65-5.03) M/mm3 Hgb 11.7 L (11.8-15.2) gm/dl MCV 72 L (84-94) fl MCH 23 L (28-32) pg RDW 17.8 H (13.2-15.2) % Seg Neuts % (Manual) 97.0 H (40.0-70.0) % Lymphocytes % (Manual) 2.0 L (13.4-35.0) % Seg Neutrophils # Man 14.6 H (1.8-7.7) K/mm3 Lymphocytes # (Manual) 0.3 L (1.2-5.4) K/mm3 D-Dimer (0-234) ng/mlDDU POC ABG pH (7.35-7.45) POC ABG pCO2 (35-45) POC ABG pO2 (80-105) Sodium (137-145) mmol/L Potassium (3.6-5.0) mmol/L Chloride 94.2 L (98-107) mmol/L Carbon Dioxide (22-30) mmol/L Glucose 137 H (75-100) mg/dL Calcium (8.4-10.2) mg/dL NT-Pro-B Natriuret Pep (0-900) pg/mL Urine Creatinine 30.5 H (0.1-20.0) mg/dL
[2018-11-22] MEDS ORDERED: NON-FORMULARY (Roflumilast [Daliresp] 500 MCG) PO SCH (10:00)
[2018-11-22] MEDS ORDERED: DIGOXIN PO SCH (10:00)
[2018-11-22] MEDS ORDERED: NON-FORMULARY (Pantoprazole Sodium 40 MG) PO SCH (10:00)
--- NOTE | 2018-11-22 10:25 | Progress Note ---
Assessment and Plan Currently stable cardiac status. Pt still with dyspnea and wheezing, had a bout of left-sided stabbing cp this morning. Pt reports h/o CAD with multiple PCIs. F/u echo. EKG shows sinus rhythm and nonspecific ST-T changes, Quentin negative for AMI. Can consider stress test once medically stabilized. Pt is regularly followed by Dr. Cruzito Pierce with [facility]. Will transfer cardiology service to [facility] for continuity of care. The patient has been seen in conjunction with Dr. Mcclain who agrees with the assessment and plan of care. - Patient Problems (1) COPD with exacerbation Current Visit: Yes Status: Acute (2) Acute and chronic respiratory failure Current Visit: Yes Status: Acute (3) CAD (coronary artery disease) Current Visit: Yes Status: Chronic (4) Stented coronary artery Current Visit: Yes Status: Chronic (5) Hypernatremia Current Visit: Yes Status: Resolved (6) HTN (hypertension) Current Visit: Yes Status: Chronic (7) Obesity Current Visit: Yes Status: Chronic Subjective Date of service: 11/22/18 Principal diagnosis: COPD exac Interval history: pt resting in bed, still with SOB although he says dyspnea is improving. had a bout of left-sided stabbing cp this morning. Objective Last Vital Signs Temp 98.0 F 11/22/18 08:16 Pulse 85 11/22/18 04:17 Resp 18 11/22/18 08:37 BP 130/64 11/22/18 08:16 Pulse Ox 90 11/22/18 04:17 - Physical Examination General: No Apparent Distress HEENT: Positive: PERRL Neck: Positive: trachea midline Cardiac: Positive: Reg Rate and Rhythm, S1/S2 Lungs: Positive: Decreased Breath Sounds, Wheezes Neuro: Positive: Grossly Intact Abdomen: Positive: Unremarkable Skin: Negative: Rash Extremities: Absent: edema - Labs and Meds CBC 11/22/18 Range/Units 04:32 WBC 15.0 H (4.5-11.0) K/mm3 RBC 5.17 H (3.65-5.03) M/mm3 Hgb 11.7 L (11.8-15.2) gm/dl Hct 37.2 (35.5-45.6) % Plt Count 234 (140-440) K/mm3 Comprehensive Metabolic Panel 11/21/18 11/21/18 11/21/18 Range/Units 12:03 15:12 18:34 Sodium 139 D 139 139 (137-145) mmol/L Potassium 4.9 (3.6-5.0) mmol/L Chloride 96.2 L (98-107) mmol/L Carbon Dioxide 31 H (22-30) mmol/L BUN 11 (9-20) mg/dL Creatinine 1.1 (0.8-1.5) mg/dL Glucose 112 H (75-100) mg/dL Calcium 8.1 L (8.4-10.2) mg/dL 11/22/18 11/22/18 Range/Units 00:45 04:32 Sodium 140 140 (137-145) mmol/L Potassium 4.6 (3.6-5.0) mmol/L Chloride 94.2 L (98-107) mmol/L Carbon Dioxide 30 (22-30) mmol/L BUN 12 (9-20) mg/dL Creatinine 0.9 (0.8-1.5) mg/dL Glucose 137 H (75-100) mg/dL Calcium 8.9 (8.4-10.2) mg/dL
[2018-11-22] MEDS: SOLU-Medrol IV SCH ×3 (10:56→17:16)
[2018-11-22] MEDS: PROTONIX PO SCH (10:56)
[2018-11-22] MEDS: SODIUM CHLORIDE FLUSH SYRINGE 10 ML IV SCH ×2 (10:56→21:45)
[2018-11-22] MEDS: PEPCID PO SCH ×2 (10:56→21:45)
--- NOTE | 2018-11-22 13:11 | Progress Note ---
Assessment and Plan Hyper-osm Hypernatremia: -Sodium level noted to be 140 on recent lab draw -Yesterday's level started at 174 -D5W@ 125 ml/hr discontinued -On Lasix 20 mg IV BID -On serial sodium levels every 6 hours -On Neuro checks every 4 hours COPD exacerbation: -On Nebulizer treatments -On IV Azithromycin -On IV Solumedrol -As per Pulmonary CHF/CAD: -Echocardiogram pending -On Lasix 20 mg IV BID -Cardiology onboard Hypertension: -Blood pressures are controlled -Reconcile home medications Subjective Date of service: 11/22/18 Principal diagnosis: COPD exac Interval history: Patient seen sitting up in bed about to eat lunch. States does not like hospital food. at bedside. Reviewed renal plan of care. Objective - Vital Signs Vital signs: Vital Signs - 12hr 11/22/18 11/22/18 11/22/18 01:20 01:31 01:45 Temperature Pulse Rate 88 84 Pulse Rate [ Anterior Bilateral Throughout] Respiratory 22 20 Rate Respiratory Rate [Anterior Bilateral Throughout] Blood Pressure O2 Sat by Pulse 92 93 Oximetry 11/22/18 11/22/18 11/22/18 02:40 02:50 02:53 Temperature Pulse Rate 87 Pulse Rate [ 97 H 90 Anterior Bilateral Throughout] Respiratory 20 Rate Respiratory 22 20 Rate [Anterior Bilateral Throughout] Blood Pressure O2 Sat by Pulse 92 Oximetry 11/22/18 11/22/18 11/22/18 04:17 08:16 08:37 Temperature 98.4 F 98.0 F Pulse Rate 85 Pulse Rate [ Anterior Bilateral Throughout] Respiratory 21 18 18 Rate Respiratory Rate [Anterior Bilateral Throughout] Blood Pressure 133/71 130/64 O2 Sat by Pulse 90 Oximetry - General Appearance General appearance: well-developed, appears stated age EENT: ATNC, PERRL, hearing intact, vision intact Neck: no JVD, supple Respiratory: Present: Decreased Breath Sounds Cardiology: regular, S1S2 Gastrointestinal: normoactive bowel sounds Integumentary: warm and dry Neurologic: alert and oriented x3 Musculoskeletal: other (No edema) Psychiatric: cooperative - Lab 11/22/18 04:32 11/22/18 04:32 Most recent lab results Calcium 8.9 mg/dL (8.4-10.2) 11/22/18 04:32 Phosphorus 2.50 mg/dL (2.5-4.5) 11/22/18 04:32 30.5 mg/dL (0.1-20.0) H 11/21/18 22:07 98 mmol/L 11/21/18 22:07 Medications & Allergies - Medications Allergies/Adverse Reactions: Allergies No Known Allergies Allergy (Unverified 11/21/18 08:22) Home Medications: Home Medications Medication Instructions Recorded Confirmed Last Taken Type AtorvaSTATin [Lipitor] 40 mg PO QHS 11/21/18 11/21/18 11/20/18 History Carvedilol [Coreg] 6.25 mg PO BID 11/21/18 11/21/18 11/20/18 History Digoxin [Lanoxin] 250 mcg PO 11/21/18 11/20/18 History Fluticasone/Salmeterol [Advair 1 each IH 11/21/18 11/20/18 History 250-50 Diskus] Furosemide [Lasix] 20 mg PO QDAY 11/21/18 11/21/18 11/20/18 History Isosorbide Mononitrate 30 mg PO 11/21/18 11/21/18 10:13 History Pantoprazole Sodium 40 mg PO 11/21/18 11/20/18 History Roflumilast [Daliresp] 500 mcg PO QDAY 11/21/18 11/21/18 11/20/18 History Tiotropium [place] [Spiriva 2.5 gm IH 11/21/18 11/20/18 History Respimat] hydrALAZINE [Apresoline] 50 mg PO 11/21/18 11/20/18 History Active Medications: Generic Name Dose Route Start Last Admin Trade Name Freq PRN Reason Stop Dose Admin Acetaminophen 650 mg 11/21/18 12:11 Tylenol PO Q4H PRN Pain MILD(1-3)/Fever >100.5/BLOOM Albuterol 2.5 mg 11/21/18 12:11 11/22/18 02:51 Proventil IH 2.5 mg Q4HRT PRN Administration Shortness Of Breath Arformoterol Tartrate 15 mcg 11/22/18 13:15 Brodeliaa Nebu IH Q12HRT ANNE Atorvastatin Calcium 40 mg 11/21/18 22:00 11/21/18 23:23 Lipitor PO 40 mg QHS ANNE Administration Budesonide 0.5 mg 11/22/18 13:15 Pulmicort IH Q12HRT [facility] Famotidine 20 mg 11/21/18 22:00 11/22/18 10:56 Pepcid PO 20 mg BID ANNE Administration Furosemide 20 mg 11/21/18 18:00 11/22/18 08:01 Lasix IV 20 mg BID@0600,1800 [facility] Administration Azithromycin 500 mg/ Sodium 250 mls @ 250 mls/hr 11/22/18 10:00 Chloride IV Q24HR [facility] Methylprednisolone Sodium Succinate 60 mg 11/22/18 14:00 Solu-Medrol IV Q6HR [facility] Miscellaneous Medication 500 mcg 11/22/18 10:00 Roflumilast [Daliresp] PO QDAY [facility] Ondansetron HCl 4 mg 11/21/18 12:11 Zofran IV Q8H PRN Nausea And Vomiting Pantoprazole Sodium 40 mg 11/22/18 10:00 11/22/18 10:56 Protonix PO 40 mg DAILY ANNE Administration Sodium Chloride 10 ml 11/21/18 22:00 11/22/18 10:56 Sodium Chloride Flush Syringe 10 Ml IV 10 ml BID ANNE Administration Sodium Chloride 10 ml 11/21/18 12:11 Sodium Chloride Flush Syringe 10 Ml IV PRN PRN LINE FLUSH
--- NOTE | 2018-11-22 13:22 | Event Note ---
Date: 11/22/18 Patient off floor for echo but at bedside. Confirms that patient has COPD and sounds like central sleep apnea as per he has a bipap at home that he wears every night. Per , saw Alvaro a week ago for "follow up". From what I could not get from the . He still had a cough and Alvaro treated with abx but no steroids. Per , cough is what made everything worse. Remainder not obtainable as not in room. Reviewed the chart and added BID pulmicort and brovana and increased steroids to 60q6. Patient takes advair and spiriva at home. Will attempt to reassess later today.
[2018-11-22] MEDS ORDERED: SOLU-Medrol IV SCH (14:00)
[2018-11-22] MEDS: ZITHROMAX 500 MG in NACL 0.9% 250ML 250 ML IV SCH (14:11)
--- NOTE | 2018-11-22 14:18 | Progress Note ---
Subjective Date of service: 11/22/18 Principal diagnosis: COPD exac Objective - Constitutional Vitals: Vital Signs - 12hr 11/22/18 11/22/18 11/22/18 02:40 02:50 02:53 Temperature Pulse Rate 87 Pulse Rate [ 97 H 90 Anterior Bilateral Throughout] Respiratory 20 Rate Respiratory 22 20 Rate [Anterior Bilateral Throughout] Blood Pressure O2 Sat by Pulse 92 Oximetry 11/22/18 11/22/18 11/22/18 04:17 08:16 08:37 Temperature 98.4 F 98.0 F Pulse Rate 85 Pulse Rate [ Anterior Bilateral Throughout] Respiratory 21 18 18 Rate Respiratory Rate [Anterior Bilateral Throughout] Blood Pressure 133/71 130/64 O2 Sat by Pulse 90 Oximetry - Labs CBC & Chem 7: 11/22/18 04:32 11/22/18 04:32 Labs: Abnormal lab results 11/21/18 11/21/18 11/22/18 Range/Units 14:37 22:07 04:32 WBC 15.0 H (4.5-11.0) K/mm3 RBC 5.17 H (3.65-5.03) M/mm3 Hgb 11.7 L (11.8-15.2) gm/dl MCV 72 L (84-94) fl MCH 23 L (28-32) pg RDW 17.8 H (13.2-15.2) % Seg Neuts % (Manual) 97.0 H (40.0-70.0) % Lymphocytes % (Manual) 2.0 L (13.4-35.0) % Seg Neutrophils # Man 14.6 H (1.8-7.7) K/mm3 Lymphocytes # (Manual) 0.3 L (1.2-5.4) K/mm3 POC ABG pH 7.332 L (7.35-7.45) POC ABG pCO2 62.8 H (35-45) POC ABG pO2 79 L (80-105) Chloride (98-107) mmol/L Glucose (75-100) mg/dL Urine Creatinine 30.5 H (0.1-20.0) mg/dL 11/22/18 Range/Units 04:32 WBC (4.5-11.0) K/mm3 RBC (3.65-5.03) M/mm3 Hgb (11.8-15.2) gm/dl MCV (84-94) fl MCH (28-32) pg RDW (13.2-15.2) % Seg Neuts % (Manual) (40.0-70.0) % Lymphocytes % (Manual) (13.4-35.0) % Seg Neutrophils # Man (1.8-7.7) K/mm3 Lymphocytes # (Manual) (1.2-5.4) K/mm3 POC ABG pH (7.35-7.45) POC ABG pCO2 (35-45) POC ABG pO2 (80-105) Chloride 94.2 L (98-107) mmol/L Glucose 137 H (75-100) mg/dL Urine Creatinine (0.1-20.0) mg/dL
[2018-11-22] MEDS: PULMICORT IH SCH ×2 (14:36→20:57)
[2018-11-22] MEDS: BROVANA NEBU IH SCH ×2 (14:36→20:57)
[2018-11-23] MEDS: SOLU-Medrol IV SCH ×4 (00:21→17:39)
[2018-11-23 04:54] LABS: Hemoglobin 11.6 gm/dl (11.8-15.2); Mean Corpuscular HGB Conc 31 % (32-34); Mean Corpuscular Volume 72 fl (84-94); Platelet Count 280 K/mm3 (140-440); Red Blood Count 5.15 M/mm3 (3.65-5.03); Red Cell Distribution Width 17.2 % (13.2-15.2)
[2018-11-23 05:11] LABS: BUN/Creatinine Ratio 21; Blood Urea Nitrogen 23 mg/dL (9-20); Calcium 8.2 mg/dL (8.4-10.2); Hemolysis Index 3
[2018-11-23] MEDS: LASIX IV SCH ×2 (05:50→17:40)
[2018-11-23 06:21] LABS: Basophils % (Manual) 0 % (0.0-1.8); Eosinophils % (Manual) 0 % (0.0-4.3); Platelet Estimate Consistent w Auto; Total Cells Counted 100
[2018-11-23] MEDS: PEPCID PO SCH ×2 (09:20→21:08)
[2018-11-23] MEDS: SODIUM CHLORIDE FLUSH SYRINGE 10 ML IV SCH ×2 (09:20→21:08)
[2018-11-23] MEDS: ZITHROMAX 500 MG in NACL 0.9% 250ML 250 ML IV SCH (09:20)
[2018-11-23] MEDS: PROTONIX PO SCH (09:20)
[2018-11-23] MEDS: BROVANA NEBU IH SCH ×2 (09:32→20:09)
[2018-11-23] MEDS: PULMICORT IH SCH ×2 (09:32→20:09)
--- NOTE | 2018-11-23 10:12 | Progress Note ---
Assessment and Plan Assessment and plan: (1) CHF (congestive heart failure) Exacerbation Current Visit: Yes Status: Acute Qualifiers: Heart failure type: systolic Heart failure chronicity: acute Qualified Code(s): I50.21 - Acute systolic (congestive) heart failure Plan to address problem: Improving , ECHO 45-50%, continue anti-failure medications (2) SIRS (systemic inflammatory response syndrome) Current Visit: Yes Status: Acute Plan to address problem: IV antibiotic therapy, urinalysis, CBC, CMP, chest x ray, repeat CBC in AM. (3) Respiratory failure Current Visit: Yes Status: Acute Qualifiers: Chronicity: acute Respiratory failure complication: hypoxia Qualified Code(s): J96.01 - Acute respiratory failure with hypoxia Plan to address problem: Supplemental oxygen, nebulizer therapy, pulse oximetry, chest x ray, NIPPV, ABG. Pulmonary team consulted in ED, d dimer, VQ Scan (4) Hypernatremia Current Visit: Yes Status: Acute Plan to address problem: IVF resuscitation therapy, corrected Nephrology following (5) COPD with exacerbation Current Visit: Yes Status: Acute Plan to address problem: Supplemental oxygen, NIPPV, ABG, Chest x ray, pulse oximetry, IV antibiotic therapy, IV steroid therapy, (6) DVT prophylaxis Current Visit: Yes Status: Acute Plan to address problem: SCD to BLE while in bed, History Interval history: Patient seen and examined medical records reviewed Patient feels slightly better no new complaints Vital signs noted Hospitalist Physical - Constitutional Vitals: Temp Pulse Resp BP Pulse Ox 97.7 F 88 17 139/65 94 11/23/18 03:31 11/23/18 09:36 11/23/18 09:36 11/23/18 03:31 11/23/18 09:30 General appearance: Present: no acute distress, well-nourished - EENT Eyes: Present: PERRL, EOM intact - Neck Neck: Present: supple, normal ROM - Respiratory Respiratory effort: normal Respiratory: bilateral: diminished, negative: rales, rhonchi, wheezing - Cardiovascular Rhythm: regular Heart Sounds: Present: S1 & S2 - Extremities Extremities: no ischemia, No edema - Abdominal General gastrointestinal: soft, non-tender, non-distended, normal bowel sounds - Integumentary Integumentary: Present: clear, warm - Psychiatric Psychiatric: appropriate mood/affect, cooperative - Neurologic Neurologic: CNII-XII intact, moves all extremities Results - Labs CBC & Chem 7: 11/23/18 04:34 11/23/18 04:34 Labs: Laboratory Last Values WBC 11.6 K/mm3 (4.5-11.0) H 11/23/18 04:34 RBC 5.15 M/mm3 (3.65-5.03) H 11/23/18 04:34 Hgb 11.6 gm/dl (11.8-15.2) L 11/23/18 04:34 Hct 37.0 % (35.5-45.6) 11/23/18 04:34 MCV 72 fl (84-94) L 11/23/18 04:34 MCH 23 pg (28-32) L 11/23/18 04:34 MCHC 31 % (32-34) L 11/23/18 04:34 RDW 17.2 % (13.2-15.2) H 11/23/18 04:34 Plt Count 280 K/mm3 (140-440) 11/23/18 04:34 Add Manual Diff Complete 11/23/18 04:34 Total Counted 100 11/23/18 04:34 Seg Neutrophils % [employer] Tr[employer] Apprentice 11/23/18 04:34 Seg Neuts % (Manual) 96.0 % (40.0-70.0) H 11/23/18 04:34 0 % 11/23/18 04:34 3.0 % (13.4-35.0) L 11/23/18 04:34 Reactive Lymphs % (Man) 0 % 11/23/18 04:34 1.0 % (0.0-7.3) 11/23/18 04:34 0 % (0.0-4.3) 11/23/18 04:34 0 % (0.0-1.8) 11/23/18 04:34 0 % 11/23/18 04:34 0 % 11/23/18 04:34 0 % 11/23/18 04:34 0 % 11/23/18 04:34 Nucleated RBC % Not Reportable 11/23/18 04:34 Seg Neutrophils # Man 11.1 K/mm3 (1.8-7.7) H 11/23/18 04:34 Band Neutrophils # 0.0 K/mm3 11/23/18 04:34 0.3 K/mm3 (1.2-5.4) L 11/23/18 04:34 Abs React Lymphs (Man) 0.0 K/mm3 11/23/18 04:34 0.1 K/mm3 (0.0-0.8) 11/23/18 04:34 0.0 K/mm3 (0.0-0.4) 11/23/18 04:34 0.0 K/mm3 (0.0-0.1) 11/23/18 04:34 0.0 K/mm3 11/23/18 04:34 0.0 K/mm3 11/23/18 04:34 0.0 K/mm3 11/23/18 04:34 Blast Cells # 0.0 K/mm3 11/23/18 04:34 WBC Morphology Not Reportable 11/23/18 04:34 WBC Morphology TNR 11/23/18 04:34 Hypersegmented Neuts Not Reportable 11/23/18 04:34 Hyposegmented Neuts Not Reportable 11/23/18 04:34 Hypogranular Neuts Not Reportable 11/23/18 04:34 Not Reportable 11/23/18 04:34 Not Reportable 11/23/18 04:34 Not Reportable 11/23/18 04:34 Not Reportable 11/23/18 04:34 Not Reportable 11/23/18 04:34 Not Reportable 11/23/18 04:34 Consistent w auto 11/23/18 04:34 Not Reportable 11/23/18 04:34 Plt Clumps, EDTA Not Reportable 11/23/18 04:34 Not Reportable 11/23/18 04:34 Not Reportable 11/23/18 04:34 Not Reportable 11/23/18 04:34 Plt Morphology Comment Not Reportable 11/23/18 04:34 RBC Morphology Not Reportable 11/23/18 04:34 Dimorphic RBCs Not Reportable 11/23/18 04:34 Not Reportable 11/23/18 04:34 Not Reportable 11/23/18 04:34 Not Reportable 11/23/18 04:34 Not Reportable 11/23/18 04:34 Not Reportable 11/23/18 04:34 Not Reportable 11/23/18 04:34 Not Reportable 11/23/18 04:34 Not Reportable 11/23/18 04:34 Not Reportable 11/23/18 04:34 Not Reportable 11/23/18 04:34 Not Reportable 11/23/18 04:34 Not Reportable 11/23/18 04:34 Not Reportable 11/23/18 04:34 Not Reportable 11/23/18 04:34 Not Reportable 11/23/18 04:34 Not Reportable 11/23/18 04:34 Not Reportable 11/23/18 04:34 Not Reportable 11/23/18 04:34 Not Reportable 11/23/18 04:34 Acanthocytes (Spur) Not Reportable 11/23/18 04:34 Rouleaux Not Reportable 11/23/18 04:34 Not Reportable 11/23/18 04:34 Not Reportable 11/23/18 04:34 Not Reportable 11/23/18 04:34 Not Reportable 11/23/18 04:34 Hem Pathologist Commnt No 11/23/18 04:34 369.06 ng/mlDDU (0-234) H 11/21/18 08:33 POC ABG pH 7.332 (7.35-7.45) L 11/21/18 14:37 POC ABG pCO2 62.8 (35-45) H 11/21/18 14:37 POC ABG pO2 79 (80-105) L 11/21/18 14:37 POC ABG HCO3 33.3 (22-26 mml/L) 11/21/18 14:37 POC ABG Total CO2 35 (23-27mmol/L) 11/21/18 14:37 POC ABG O2 Sat 94 11/21/18 14:37 POC ABG Base Excess 7 ((-2) - (+3)mmol/L) 11/21/18 14:37 30 % 11/21/18 14:37 Sodium 138 mmol/L (137-145) 11/23/18 04:34 Potassium 4.6 mmol/L (3.6-5.0) 11/23/18 04:34 Chloride 92.6 mmol/L (98-107) L 11/23/18 04:34 Carbon Dioxide 37 mmol/L (22-30) H D 11/23/18 04:34 13 mmol/L 11/23/18 04:34 BUN 23 mg/dL (9-20) H 11/23/18 04:34 1.1 mg/dL (0.8-1.5) 11/23/18 04:34 Estimated GFR > 60 ml/min 11/23/18 04:34 21 % 11/23/18 04:34 Glucose 177 mg/dL (75-100) H 11/23/18 04:34 Calcium 8.2 mg/dL (8.4-10.2) L 11/23/18 04:34 Phosphorus 3.40 mg/dL (2.5-4.5) D 11/23/18 04:34 < 0.010 ng/mL (0.00-0.029) 11/22/18 10:07 NT-Pro-B Natriuret Pep 1570 pg/mL (0-900) H 11/21/18 08:33 Straw (Yellow) 11/21/18 22:07 Clear (Clear) 11/21/18 22:07 5.0 (5.0-7.0) 11/21/18 22:07 Ur Specific [place] 1.008 (1.003-1.030) 11/21/18 22:07 <15 mg/dl mg/dL (Negative) 11/21/18 22:07 Neg mg/dL (Negative) 11/21/18 22:07 Neg mg/dL (Negative) 11/21/18 22:07 Sm (Negative) 11/21/18 22:07 Neg (Negative) 11/21/18 22:07 Neg (Negative) 11/21/18 22:07 < 2.0 mg/dL (<2.0) 11/21/18 22:07 Ur Leukocyte Esterase Neg (Negative) 11/21/18 22:07 1.0 /HPF (0.0-6.0) 11/21/18 22:07 < 1.0 /HPF (0.0-6.0) 11/21/18 22:07 U Epithel Cells (Auto) < 1.0 /HPF (0-13.0) 11/21/18 22:07 Hyaline Casts 1 /LPF 11/21/18 22:07 Few /HPF 11/21/18 22:07 325 Mosm/kg 11/21/18 22:07 30.5 mg/dL (0.1-20.0) H 11/21/18 22:07 98 mmol/L 11/21/18 22:07 Active Medications - Current Medications Current Medications: Generic Name Dose Route Start Last Admin Trade Name Freq PRN Reason Stop Dose Admin Acetaminophen 650 mg 11/21/18 12:11 Tylenol PO Q4H PRN Pain MILD(1-3)/Fever >100.5/BLOOM Albuterol 2.5 mg 11/21/18 12:11 11/22/18 02:51 Proventil IH 2.5 mg Q4HRT PRN Administration Shortness Of Breath Arformoterol Tartrate 15 mcg 11/22/18 13:15 11/23/18 09:32 Brovana Nebu IH 15 mcg Q12HRT ANNE Administration Atorvastatin Calcium 40 mg 11/21/18 22:00 11/22/18 21:44 Lipitor PO 40 mg QHS ANNE Administration Budesonide 0.5 mg 11/22/18 13:15 11/23/18 09:32 Pulmicort IH 0.5 mg Q12HRT ANNE Administration Famotidine 20 mg 11/21/18 22:00 11/23/18 09:20 Pepcid PO 20 mg BID ANNE Administration Furosemide 20 mg 11/21/18 18:00 11/23/18 05:50 Lasix IV 20 mg BID@0600,1800 ANNE Administration Azithromycin 500 mg/ Sodium 250 mls @ 250 mls/hr 11/22/18 10:00 11/23/18 09 :20 Chloride IV 250 mls/hr Q24HR ANNE Administration Methylprednisolone Sodium Succinate 60 mg 11/22/18 14:00 11/23/18 05:50 Solu-Medrol IV 60 mg Q6HR ANNE Administration Miscellaneous Medication 500 mcg 11/22/18 10:00 Roflumilast [Daliresp] PO QDAY ANNE Ondansetron HCl 4 mg 11/21/18 12:11 Zofran IV Q8H PRN Nausea And Vomiting Pantoprazole Sodium 40 mg 11/22/18 10:00 11/23/18 09:20 Protonix PO 40 mg DAILY ANNE Administration Sodium Chloride 10 ml 11/21/18 22:00 11/23/18 09:20 Sodium Chloride Flush Syringe 10 Ml IV 10 ml BID ANNE Administration Sodium Chloride 10 ml 11/21/18 12:11 Sodium Chloride Flush Syringe 10 Ml IV PRN PRN LINE FLUSH
--- NOTE | 2018-11-23 12:56 | Progress Note ---
Assessment and Plan Hyper-osm Hypernatremia: -resolved, elevated Na on admission likely was a lab error, sodium was corrected without IVF within 4 hours COPD exacerbation: -On Nebulizer treatments -On IV Azithromycin -On IV Solumedrol -As per Pulmonary CHF/CAD: -On Lasix 20 mg IV BID -Cardiology onboard Hypertension: -Blood pressures are controlled -Reconcile home medications will sign off, please re consult if needed Subjective Date of service: 11/23/18 Principal diagnosis: CHF exacerbation Interval history: comfortable denies acute issues Objective - Vital Signs Vital signs: Vital Signs - 12hr 11/23/18 11/23/18 11/23/18 03:31 09:30 09:36 Temperature 97.7 F Pulse Rate 72 Pulse Rate [ 86 88 Anterior Bilateral Throughout] Respiratory 22 Rate Respiratory 20 17 Rate [Anterior Bilateral Throughout] Blood Pressure 139/65 O2 Sat by Pulse 96 94 Oximetry - General Appearance General appearance: well-developed, well-nourished EENT: ATNC, PERRL, mucous membranes moist Neck: no JVD, no carotid bruit Respiratory: Present: Decreased Breath Sounds Cardiology: regular, S1S2 Gastrointestinal: normoactive bowel sounds, no tenderness, no distended Integumentary: no rash, warm and dry Neurologic: no focal deficit, no asterixis, alert and oriented x3 Musculoskeletal: other (no edema in BLE) Psychiatric: mood/affect appropriate, cooperative - Lab 11/23/18 04:34 11/23/18 04:34 Most recent lab results Calcium 8.2 mg/dL (8.4-10.2) L 11/23/18 04:34 Phosphorus 3.40 mg/dL (2.5-4.5) D 11/23/18 04:34 30.5 mg/dL (0.1-20.0) H 11/21/18 22:07 98 mmol/L 11/21/18 22:07 Medications & Allergies - Medications Allergies/Adverse Reactions: Allergies No Known Allergies Allergy (Unverified 11/21/18 08:22) Home Medications: Home Medications Medication Instructions Recorded Confirmed Last Taken Type AtorvaSTATin [Lipitor] 40 mg PO QHS 11/21/18 11/21/18 11/20/18 History Carvedilol [Coreg] 6.25 mg PO BID 11/21/18 11/21/18 11/20/18 History Digoxin [Lanoxin] 250 mcg PO 11/21/18 11/20/18 History Fluticasone/Salmeterol [Advair 1 each IH 11/21/18 11/20/18 History 250-50 Diskus] Furosemide [Lasix] 20 mg PO QDAY 11/21/18 11/21/18 11/20/18 History Isosorbide Mononitrate 30 mg PO 11/21/18 11/21/18 10:13 History Pantoprazole Sodium 40 mg PO 11/21/18 11/20/18 History Roflumilast [Daliresp] 500 mcg PO QDAY 11/21/18 11/21/18 11/20/18 History Tiotropium [place] [Spiriva 2.5 gm IH 11/21/18 11/20/18 History Respimat] hydrALAZINE [Apresoline] 50 mg PO 11/21/18 11/20/18 History Active Medications: Generic Name Dose Route Start Last Admin Trade Name Freq PRN Reason Stop Dose Admin Acetaminophen 650 mg 11/21/18 12:11 Tylenol PO Q4H PRN Pain MILD(1-3)/Fever >100.5/BLOOM Albuterol 2.5 mg 11/21/18 12:11 11/22/18 02:51 Proventil IH 2.5 mg Q4HRT PRN Administration Shortness Of Breath Arformoterol Tartrate 15 mcg 11/22/18 13:15 11/23/18 09:32 Brovana Nebu IH 15 mcg Q12HRT ANNE Administration Atorvastatin Calcium 40 mg 11/21/18 22:00 11/22/18 21:44 Lipitor PO 40 mg QHS ANNE Administration Budesonide 0.5 mg 11/22/18 13:15 11/23/18 09:32 Pulmicort IH 0.5 mg Q12HRT ANNE Administration Famotidine 20 mg 11/21/18 22:00 11/23/18 09:20 Pepcid PO 20 mg BID ANNE Administration Furosemide 20 mg 11/21/18 18:00 11/23/18 05:50 Lasix IV 20 mg BID@0600,1800 ANNE Administration Azithromycin 500 mg/ Sodium 250 mls @ 250 mls/hr 11/22/18 10:00 11/23/18 09:20 Chloride IV 250 mls/hr Q24HR ANNE Administration Methylprednisolone Sodium Succinate 60 mg 11/22/18 14:00 11/23/18 12:31 Solu-Medrol IV 60 mg Q6HR ANNE Administration Miscellaneous Medication 500 mcg 11/22/18 10:00 Roflumilast [Daliresp] PO QDAY ANNE Ondansetron HCl 4 mg 11/21/18 12:11 Zofran IV Q8H PRN Nausea And Vomiting Pantoprazole Sodium 40 mg 11/22/18 10:00 11/23/18 09:20 Protonix PO 40 mg DAILY ANNE Administration Sodium Chloride 10 ml 11/21/18 22:00 11/23/18 09:20 Sodium Chloride Flush Syringe 10 Ml IV 10 ml BID ANNE Administration Sodium Chloride 10 ml 11/21/18 12:11 Sodium Chloride Flush Syringe 10 Ml IV PRN PRN LINE FLUSH
--- NOTE | 2018-11-23 15:55 | Consultation ---
History of Present Illness Consult date: 11/23/18 Requesting physician: GERMAIN COSTA Reason for consult: COPD History of present illness: 63 y/o male with known COPD, admitted with worsening shortness of breath. Saw my partner, Alvaro a week ago. Treated with abx no steroids. STarted to feel better but then over the weekend felt worse so came in. No fever, no sick contacts. Positive wheezing and coughing some light green sputum. Past History Past Medical History: CAD, COPD, heart failure, hypertension Past Surgical History: Other (Cardiac stent placement) Social history: , lives with family Family history: hypertension Medications and Allergies Allergies Allergy/AdvReac Type Severity Reaction Status Date / Time No Known Allergies Allergy Unverified 11/21/18 08:22 Home Medications Medication Instructions Recorded Confirmed Last Taken Type AtorvaSTATin [Lipitor] 40 mg PO QHS 11/21/18 11/21/18 11/20/18 History Carvedilol [Coreg] 6.25 mg PO BID 11/21/18 11/21/18 11/20/18 History Digoxin [Lanoxin] 250 mcg PO 11/21/18 11/20/18 History Fluticasone/Salmeterol [Advair 1 each IH 11/21/18 11/20/18 History 250-50 Diskus] Furosemide [Lasix] 20 mg PO QDAY 11/21/18 11/21/18 11/20/18 History Isosorbide Mononitrate 30 mg PO 11/21/18 11/21/18 10:13 History Pantoprazole Sodium 40 mg PO 11/21/18 11/20/18 History Roflumilast [Daliresp] 500 mcg PO QDAY 11/21/18 11/21/18 11/20/18 History Tiotropium Topping [Spiriva 2.5 gm IH 11/21/18 11/20/18 History Respimat] hydrALAZINE [Apresoline] 50 mg PO 11/21/18 11/20/18 History Active Meds: Active Medications Acetaminophen (Tylenol) 650 mg PO Q4H PRN PRN Reason: Pain MILD(1-3)/Fever >100.5/BLOOM Albuterol (Proventil) 2.5 mg IH Q4HRT PRN PRN Reason: Shortness Of Breath Last Admin: 11/22/18 02:51 Dose: 2.5 mg Documented by: Arformoterol Tartrate (Brovana Nebu) 15 mcg IH Q12HRT [facility] Last Admin: 11/23/18 09:32 Dose: 15 mcg Documented by: Atorvastatin Calcium (Lipitor) 40 mg PO QHS [facility] Last Admin: 11/22/18 21:44 Dose: 40 mg Documented by: Budesonide (Pulmicort) 0.5 mg IH Q12HRT [facility] Last Admin: 11/23/18 09:32 Dose: 0.5 mg Documented by: Famotidine (Pepcid) 20 mg PO BID [facility] Last Admin: 11/23/18 09:20 Dose: 20 mg Documented by: Furosemide (Lasix) 20 mg IV BID@0600,1800 [facility] Last Admin: 11/23/18 05:50 Dose: 20 mg Documented by: Azithromycin 500 mg/ Sodium (Chloride) 250 mls @ 250 mls/hr IV Q24HR [facility] Last Admin: 11/23/18 09:20 Dose: 250 mls/hr Documented by: Methylprednisolone Sodium Succinate (Solu-Medrol) 60 mg IV Q6HR [facility] Last Admin: 11/23/18 12:31 Dose: 60 mg Documented by: Miscellaneous Medication (Roflumilast [Daliresp]) 500 mcg PO QDAY [facility] Ondansetron HCl (Zofran) 4 mg IV Q8H PRN PRN Reason: Nausea And Vomiting Pantoprazole Sodium (Protonix) 40 mg PO DAILY [facility] Last Admin: 11/23/18 09:20 Dose: 40 mg Documented by: Sodium Chloride (Sodium Chloride Flush Syringe 10 Ml) 10 ml IV BID [facility] Last Admin: 11/23/18 09:20 Dose: 10 ml Documented by: Sodium Chloride (Sodium Chloride Flush Syringe 10 Ml) 10 ml IV PRN PRN PRN Reason: LINE FLUSH Review of Systems All systems: negative Physical Examination Vital signs: Vital Signs Pulse 100 H 11/21/18 08:18 General appearance: no acute distress, alert Eyes: non-icteric ENT: other (poor dentition) Neck: supple Effort: normal Ascultation: Bilateral: diminished breath sounds, wheezes Percussion: Bilateral: not dull Tactile fremitus: Bilateral: normal Cardiovascular: regular rate and rhythm Gastrointestinal: normoactive bowel sounds, soft, non-tender Results - Laboratory Findings CBC and BMP: 11/23/18 04:34 11/23/18 04:34 ABG POC ABG pH 7.332 (7.35-7.45) L 11/21/18 14:37 POC ABG pCO2 62.8 (35-45) H 11/21/18 14:37 POC ABG pO2 79 (80-105) L 11/21/18 14:37 POC ABG HCO3 33.3 (22-26 mml/L) 11/21/18 14:37 POC ABG Total CO2 35 (23-27mmol/L) 11/21/18 14:37 POC ABG O2 Sat 94 11/21/18 14:37 PT/INR, D-dimer 369.06 ng/mlDDU (0-234) H 11/21/18 08:33 Abnormal lab findings: Abnormal Labs 11/21/18 11/21/18 11/21/18 08:33 08:33 08:33 WBC 13.3 H RBC Hgb 11.0 L MCV 73 L MCH 22 L MCHC 31 L RDW 18.1 H Seg Neuts % (Manual) 96.0 H Lymphocytes % (Manual) 2.0 L Seg Neutrophils # Man 12.8 H Lymphocytes # (Manual) 0.3 L D-Dimer 369.06 H POC ABG pH POC ABG pCO2 POC ABG pO2 Sodium 174 H* Potassium 5.3 H Chloride 128.8 H Carbon Dioxide 31 H BUN Glucose 130 H Calcium NT-Pro-B Natriuret Pep Urine Creatinine 11/21/18 11/21/18 11/21/18 08:33 08:47 12:03 WBC RBC Hgb MCV MCH MCHC RDW Seg Neuts % (Manual) Lymphocytes % (Manual) Seg Neutrophils # Man Lymphocytes # (Manual) D-Dimer POC ABG pH 7.289 L POC ABG pCO2 69.9 H POC ABG pO2 73 L Sodium Potassium Chloride 96.2 L Carbon Dioxide 31 H BUN Glucose 112 H Calcium 8.1 L NT-Pro-B Natriuret Pep 1570 H Urine Creatinine 11/21/18 11/21/18 11/22/18 14:37 22:07 04:32 WBC 15.0 H RBC 5.17 H Hgb 11.7 L MCV 72 L MCH 23 L MCHC RDW 17.8 H Seg Neuts % (Manual) 97.0 H Lymphocytes % (Manual) 2.0 L Seg Neutrophils # Man 14.6 H Lymphocytes # (Manual) 0.3 L D-Dimer POC ABG pH 7.332 L POC ABG pCO2 62.8 H POC ABG pO2 79 L Sodium Potassium Chloride Carbon Dioxide BUN Glucose Calcium NT-Pro-B Natriuret Pep Urine Creatinine 30.5 H 11/22/18 11/22/18 11/23/18 04:32 20:28 04:34 WBC 11.6 H RBC 5.15 H Hgb 11.6 L MCV 72 L MCH 23 L MCHC 31 L RDW 17.2 H Seg Neuts % (Manual) 96.0 H Lymphocytes % (Manual) 3.0 L Seg Neutrophils # Man 11.1 H Lymphocytes # (Manual) 0.3 L D-Dimer POC ABG pH POC ABG pCO2 POC ABG pO2 Sodium 136 L Potassium Chloride 94.2 L Carbon Dioxide BUN Glucose 137 H Calcium NT-Pro-B Natriuret Pep Urine Creatinine 11/23/18 04:34 WBC RBC Hgb MCV MCH MCHC RDW Seg Neuts % (Manual) Lymphocytes % (Manual) Seg Neutrophils # Man Lymphocytes # (Manual) D-Dimer POC ABG pH POC ABG pCO2 POC ABG pO2 Sodium Potassium Chloride 92.6 L Carbon Dioxide 37 H D BUN 23 H Glucose 177 H Calcium 8.2 L NT-Pro-B Natriuret Pep Urine Creatinine - Diagnostic Findings Chest x-ray: image reviewed (hyperinflation with no evidence of acute intraparenchymal lung disease) Assessment and Plan 63 y/o male with acute exacerbation of COPD 1. continue solumedrol 60q6 2. Added BID pulmicort and brovana 3. Agree with diuresis given echo results. Pulmonary HTN can be treated with diuretics. (mild) 4. Supplemental O2
[2018-11-24] MEDS: SOLU-Medrol IV SCH ×5 (00:06→23:51)
[2018-11-24] MEDS: SODIUM CHLORIDE FLUSH SYRINGE 10 ML IV PRN ×3 (00:07→23:52)
[2018-11-24] MEDS: LASIX IV SCH ×2 (05:14→18:14)
[2018-11-24 07:12] LABS: Hematocrit 35.4 % (35.5-45.6); Mean Corpuscular HGB Conc 31 % (32-34); Mean Corpuscular Volume 71 fl (84-94); Platelet Count 314 K/mm3 (140-440); Red Cell Distribution Width 17.7 % (13.2-15.2)
[2018-11-24 07:44] LABS: BUN/Creatinine Ratio 26; Blood Urea Nitrogen 31 mg/dL (9-20); Calcium 8.3 mg/dL (8.4-10.2); Hemolysis Index 14
[2018-11-24] MEDS: BROVANA NEBU IH SCH ×2 (08:11→20:14)
[2018-11-24] MEDS: PULMICORT IH SCH ×2 (08:13→20:14)
[2018-11-24] MEDS: SODIUM CHLORIDE FLUSH SYRINGE 10 ML IV SCH ×2 (09:50→21:50)
[2018-11-24] MEDS: PROTONIX PO SCH (09:50)
[2018-11-24] MEDS: PEPCID PO SCH ×2 (09:50→21:49)
[2018-11-24] MEDS: ZITHROMAX 500 MG in NACL 0.9% 250ML 250 ML IV SCH (09:50)
[2018-11-24] MEDS ORDERED: SOLU-Medrol IV SCH (10:29)
--- NOTE | 2018-11-24 10:29 | Progress Note ---
Assessment and Plan Assessment and plan: --Acute Mild systolic CHF Symptoms Improving , ECHO 45-50%, continue anti-failure medications Cardiology following -- SIRS (systemic inflammatory response syndrome) IV antibiotic therapy, urinalysis, CBC, CMP, chest x ray, repeat CBC in AM. --Acute hypoxic Respiratory failure Secondary to COPD exacerbation ,Supplemental oxygen, nebulizer therapy, Pulmonary following --Hypernatremia; resolved IVF resuscitation therapy, corrected Nephrology following --COPD with acute exacerbation Supplemental oxygen, titrate O2 sats to more than 90% BiPAP as needed, nebulizers, tapering dose of IV steroids, inhalation steroids Antibiotics and supportive care, pulmonary following --DVT prophylaxis SCD to BLE while in bed, Consults and recommendations noted and appreciated Possible discharge in 1-2 days if stable History Interval history: Patient seen and examined medical records reviewed Patient feels slightly better, continues to have mild shortness of breath On nasal cannula oxygen Vital signs noted Hospitalist Physical - Constitutional Vitals: Temp Pulse Resp BP Pulse Ox 97.7 F 81 20 129/69 94 11/24/18 08:08 11/24/18 08:25 11/24/18 08:25 11/24/18 08:08 11/24/18 08:14 General appearance: Present: no acute distress, well-nourished - EENT Eyes: Present: PERRL, EOM intact - Neck Neck: Present: supple, normal ROM - Respiratory Respiratory effort: normal Respiratory: bilateral: diminished, negative: rales, rhonchi, wheezing - Cardiovascular Rhythm: regular Heart Sounds: Present: S1 & S2 - Extremities Extremities: no ischemia, No edema Peripheral Pulses: within normal limits - Abdominal General gastrointestinal: soft, non-tender, non-distended, normal bowel sounds - Integumentary Integumentary: Present: clear, warm - Psychiatric Psychiatric: appropriate mood/affect, cooperative - Neurologic Neurologic: CNII-XII intact, moves all extremities Results - Labs CBC & Chem 7: 11/24/18 04:30 11/24/18 04:30 Labs: Laboratory Last Values WBC 16.7 K/mm3 (4.5-11.0) H 11/24/18 04:30 RBC 5.00 M/mm3 (3.65-5.03) 11/24/18 04:30 Hgb 11.0 gm/dl (11.8-15.2) L 11/24/18 04:30 Hct 35.4 % (35.5-45.6) L 11/24/18 04:30 MCV 71 fl (84-94) L 11/24/18 04:30 MCH 22 pg (28-32) L 11/24/18 04:30 MCHC 31 % (32-34) L 11/24/18 04:30 RDW 17.7 % (13.2-15.2) H 11/24/18 04:30 Plt Count 314 K/mm3 (140-440) 11/24/18 04:30 Add Manual Diff Complete 11/23/18 04:34 Total Counted 100 11/23/18 04:34 Seg Neutrophils % Vending Technician 11/23/18 04:34 Seg Neuts % (Manual) 96.0 % (40.0-70.0) H 11/23/18 04:34 0 % 11/23/18 04:34 3.0 % (13.4-35.0) L 11/23/18 04:34 Reactive Lymphs % (Man) 0 % 11/23/18 04:34 1.0 % (0.0-7.3) 11/23/18 04:34 0 % (0.0-4.3) 11/23/18 04:34 0 % (0.0-1.8) 11/23/18 04:34 0 % 11/23/18 04:34 0 % 11/23/18 04:34 0 % 11/23/18 04:34 0 % 11/23/18 04:34 Nucleated RBC % Not Reportable 11/23/18 04:34 Seg Neutrophils # Man 11.1 K/mm3 (1.8-7.7) H 11/23/18 04:34 Band Neutrophils # 0.0 K/mm3 11/23/18 04:34 0.3 K/mm3 (1.2-5.4) L 11/23/18 04:34 Abs React Lymphs (Man) 0.0 K/mm3 11/23/18 04:34 0.1 K/mm3 (0.0-0.8) 11/23/18 04:34 0.0 K/mm3 (0.0-0.4) 11/23/18 04:34 0.0 K/mm3 (0.0-0.1) 11/23/18 04:34 0.0 K/mm3 11/23/18 04:34 0.0 K/mm3 11/23/18 04:34 0.0 K/mm3 11/23/18 04:34 Blast Cells # 0.0 K/mm3 11/23/18 04:34 WBC Morphology Not Reportable 11/23/18 04:34 WBC Morphology TNR 11/23/18 04:34 Hypersegmented Neuts Not Reportable 11/23/18 04:34 Hyposegmented Neuts Not Reportable 11/23/18 04:34 Hypogranular Neuts Not Reportable 11/23/18 04:34 Not Reportable 11/23/18 04:34 Not Reportable 11/23/18 04:34 Not Reportable 11/23/18 04:34 Not Reportable 11/23/18 04:34 Not Reportable 11/23/18 04:34 Not Reportable 11/23/18 04:34 Consistent w auto 11/23/18 04:34 Not Reportable 11/23/18 04:34 Plt Clumps, EDTA Not Reportable 11/23/18 04:34 Not Reportable 11/23/18 04:34 Not Reportable 11/23/18 04:34 Not Reportable 11/23/18 04:34 Plt Morphology Comment Not Reportable 11/23/18 04:34 RBC Morphology Not Reportable 11/23/18 04:34 Dimorphic RBCs Not Reportable 11/23/18 04:34 Not Reportable 11/23/18 04:34 Not Reportable 11/23/18 04:34 Not Reportable 11/23/18 04:34 Not Reportable 11/23/18 04:34 Not Reportable 11/23/18 04:34 Not Reportable 11/23/18 04:34 Not Reportable 11/23/18 04:34 Not Reportable 11/23/18 04:34 Not Reportable 11/23/18 04:34 Not Reportable 11/23/18 04:34 Not Reportable 11/23/18 04:34 Not Reportable 11/23/18 04:34 Not Reportable 11/23/18 04:34 Not Reportable 11/23/18 04:34 Not Reportable 11/23/18 04:34 Not Reportable 11/23/18 04:34 Not Reportable 11/23/18 04:34 Not Reportable 11/23/18 04:34 Not Reportable 11/23/18 04:34 Acanthocytes (Spur) Not Reportable 11/23/18 04:34 Rouleaux Not Reportable 11/23/18 04:34 Not Reportable 11/23/18 04:34 Not Reportable 11/23/18 04:34 Not Reportable 11/23/18 04:34 Not Reportable 11/23/18 04:34 Hem Pathologist Commnt No 11/23/18 04:34 369.06 ng/mlDDU (0-234) H 11/21/18 08:33 POC ABG pH 7.332 (7.35-7.45) L 11/21/18 14:37 POC ABG pCO2 62.8 (35-45) H 11/21/18 14:37 POC ABG pO2 79 (80-105) L 11/21/18 14:37 POC ABG HCO3 33.3 (22-26 mml/L) 11/21/18 14:37 POC ABG Total CO2 35 (23-27mmol/L) 11/21/18 14:37 POC ABG O2 Sat 94 11/21/18 14:37 POC ABG Base Excess 7 ((-2) - (+3)mmol/L) 11/21/18 14:37 30 % 11/21/18 14:37 Sodium 143 mmol/L (137-145) 11/24/18 04:30 Potassium 4.6 mmol/L (3.6-5.0) 11/24/18 04:30 Chloride 92.4 mmol/L (98-107) L 11/24/18 04:30 Carbon Dioxide 35 mmol/L (22-30) H 11/24/18 04:30 20 mmol/L 11/24/18 04:30 BUN 31 mg/dL (9-20) H 11/24/18 04:30 1.2 mg/dL (0.8-1.5) 11/24/18 04:30 Estimated GFR > 60 ml/min 11/24/18 04:30 26 % 11/24/18 04:30 Glucose 147 mg/dL (75-100) H 11/24/18 04:30 Calcium 8.3 mg/dL (8.4-10.2) L 11/24/18 04:30 Phosphorus 3.80 mg/dL (2.5-4.5) 11/24/18 04:30 < 0.010 ng/mL (0.00-0.029) 11/22/18 10:07 NT-Pro-B Natriuret Pep 1570 pg/mL (0-900) H 11/21/18 08:33 Straw (Yellow) 11/21/18 22:07 Clear (Clear) 11/21/18 22:07 5.0 (5.0-7.0) 11/21/18 22:07 Ur Specific [place] 1.008 (1.003-1.030) 11/21/18 22:07 <15 mg/dl mg/dL (Negative) 11/21/18 22:07 Neg mg/dL (Negative) 11/21/18 22:07 Neg mg/dL (Negative) 11/21/18 22:07 Sm (Negative) 11/21/18 22:07 Neg (Negative) 11/21/18 22:07 Neg (Negative) 11/21/18 22:07 < 2.0 mg/dL (<2.0) 11/21/18 22:07 Ur Leukocyte Esterase Neg (Negative) 11/21/18 22:07 1.0 /HPF (0.0-6.0) 11/21/18 22:07 < 1.0 /HPF (0.0-6.0) 11/21/18 22:07 U Epithel Cells (Auto) < 1.0 /HPF (0-13.0) 11/21/18 22:07 Hyaline Casts 1 /LPF 11/21/18 22:07 Few /HPF 11/21/18 22:07 325 Mosm/kg 11/21/18 22:07 30.5 mg/dL (0.1-20.0) H 11/21/18 22:07 98 mmol/L 11/21/18 22:07 Active Medications - Current Medications Current Medications: Generic Name Dose Route Start Last Admin Trade Name Freq PRN Reason Stop Dose Admin Acetaminophen 650 mg 11/21/18 12:11 Tylenol PO Q4H PRN Pain MILD(1-3)/Fever >100.5/BLOOM Albuterol 2.5 mg 11/21/18 12:11 11/22/18 02:51 Proventil IH 2.5 mg Q4HRT PRN Administration Shortness Of Breath Arformoterol Tartrate 15 mcg 11/22/18 13:15 11/24/18 08:11 Brovana Nebu IH 15 mcg Q12HRT [facility] Administration Atorvastatin Calcium 40 mg 11/21/18 22:00 11/23/18 21:07 Lipitor PO 40 mg QHS [facility] Administration Budesonide 0.5 mg 11/22/18 13:15 11/24/18 08:13 Pulmicort IH 0.5 mg Q12HRT [facility] Administration Famotidine 20 mg 11/21/18 22:00 11/24/18 09:50 Pepcid PO 20 mg BID [facility]NE Administration Furosemide 20 mg 11/21/18 18:00 11/24/18 05:14 Lasix IV 20 mg BID@0600,1800 [facility] Administration Azithromycin 500 mg/ Sodium 250 mls @ 250 mls/hr 11/22/18 10:00 11/24/18 09:50 Chloride IV 250 mls/hr Q24HR [facility] Administration Methylprednisolone Sodium Succinate 60 mg 11/22/18 14:00 11/24/18 05:14 Solu-Medrol IV 60 mg Q6HR [facility] Administration Miscellaneous Medication 500 mcg 11/22/18 10:00 Roflumilast [Daliresp] PO QDAY [facility] Ondansetron HCl 4 mg 11/21/18 12:11 Zofran IV Q8H PRN Nausea And Vomiting Pantoprazole Sodium 40 mg 11/22/18 10:00 11/24/18 09:50 Protonix PO 40 mg DAILY [facility] Administration Sodium Chloride 10 ml 11/21/18 22:00 11/24/18 09:50 Sodium Chloride Flush Syringe 10 Ml IV 10 ml BID [facility] Administration Sodium Chloride 10 ml 11/21/18 12:11 11/24/18 05:17 Sodium Chloride Flush Syringe 10 Ml IV 10 ml PRN PRN Administration LINE FLUSH
[2018-11-24 10:33] LABS: Basophils % (Manual) 0 % (0.0-1.8); Eosinophils % (Manual) 0 % (0.0-4.3); Total Cells Counted 100
[2018-11-24 10:34] LABS: Anisocytosis 1+; Hypochromasia 2+; Ovalocytes Few; Platelet Estimate Consistent w Auto; Poikilocytosis 1+; Tear Drop Cells Rare
--- NOTE | 2018-11-24 16:48 | Progress Note ---
Assessment and Plan 63 y/o male with acute exacerbation of COPD 1. continue solumedrol 60q6 2. Continue BID pulmicort and brovana 3. Agree with diuresis given echo results. Pulmonary HTN can be treated with diuretics. (mild) 4. Supplemental O2 Subjective Date of service: 11/24/18 Principal diagnosis: CHF exacerbation Interval history: No acute events. Only feels slightly better. Complains of a "cold" in his stomach. Denies any nausea or vomiting. Bowels moving ok. Per patient oxygen increased by RT from 2-3. No written documentation found as to why. Last sat documented at 94 or 2 liters. Objective Vital Signs - 12hr 11/24/18 11/24/18 11/24/18 08:08 08:14 08:25 Temperature 97.7 F Pulse Rate 81 Pulse Rate [ 79 81 Anterior Bilateral Throughout] Respiratory 16 Rate Respiratory 18 20 Rate [Anterior Bilateral Throughout] Blood Pressure 129/69 O2 Sat by Pulse 96 94 Oximetry 11/24/18 11:46 Temperature 97.6 F Pulse Rate 80 Pulse Rate [ Anterior Bilateral Throughout] Respiratory 16 Rate Respiratory Rate [Anterior Bilateral Throughout] Blood Pressure 132/58 O2 Sat by Pulse 94 Oximetry Constitutional: no acute distress, alert Eyes: non-icteric ENT: other (poor dentition) Neck: supple Effort: normal Ascultation: Bilateral: diminished breath sounds, wheezes Percussion: Bilateral: not dull Tactile fremitus: Bilateral: normal Cardiovascular: regular rate and rhythm Gastrointestinal: normoactive bowel sounds, soft, non-tender CBC and BMP: 11/24/18 04:30 11/24/18 04:30 ABG, PT/INR, D-dimer: ABG POC ABG pH 7.332 (7.35-7.45) L 11/21/18 14:37 POC ABG pCO2 62.8 (35-45) H 11/21/18 14:37 POC ABG pO2 79 (80-105) L 11/21/18 14:37 POC ABG HCO3 33.3 (22-26 mml/L) 11/21/18 14:37 POC ABG Total CO2 35 (23-27mmol/L) 11/21/18 14:37 POC ABG O2 Sat 94 11/21/18 14:37 PT/INR, D-dimer 369.06 ng/mlDDU (0-234) H 11/21/18 08:33 Abnormal lab findings: Abnormal Labs 11/21/18 11/21/18 11/21/18 08:33 08:33 08:33 WBC 13.3 H RBC Hgb 11.0 L Hct MCV 73 L MCH 22 L MCHC 31 L RDW 18.1 H Seg Neuts % (Manual) 96.0 H Lymphocytes % (Manual) 2.0 L Seg Neutrophils # Man 12.8 H Lymphocytes # (Manual) 0.3 L D-Dimer 369.06 H POC ABG pH POC ABG pCO2 POC ABG pO2 Sodium 174 H* Potassium 5.3 H Chloride 128.8 H Carbon Dioxide 31 H BUN Glucose 130 H POC Glucose Calcium NT-Pro-B Natriuret Pep Urine Creatinine 11/21/18 11/21/18 11/21/18 08:33 08:47 12:03 WBC RBC Hgb Hct MCV MCH MCHC RDW Seg Neuts % (Manual) Lymphocytes % (Manual) Seg Neutrophils # Man Lymphocytes # (Manual) D-Dimer POC ABG pH 7.289 L POC ABG pCO2 69.9 H POC ABG pO2 73 L Sodium Potassium Chloride 96.2 L Carbon Dioxide 31 H BUN Glucose 112 H POC Glucose Calcium 8.1 L NT-Pro-B Natriuret Pep 1570 H Urine Creatinine 11/21/18 11/21/18 11/22/18 14:37 22:07 04:32 WBC 15.0 H RBC 5.17 H Hgb 11.7 L Hct MCV 72 L MCH 23 L MCHC RDW 17.8 H Seg Neuts % (Manual) 97.0 H Lymphocytes % (Manual) 2.0 L Seg Neutrophils # Man 14.6 H Lymphocytes # (Manual) 0.3 L D-Dimer POC ABG pH 7.332 L POC ABG pCO2 62.8 H POC ABG pO2 79 L Sodium Potassium Chloride Carbon Dioxide BUN Glucose POC Glucose Calcium NT-Pro-B Natriuret Pep Urine Creatinine 30.5 H 11/22/18 11/22/18 11/23/18 04:32 20:28 04:34 WBC 11.6 H RBC 5.15 H Hgb 11.6 L Hct MCV 72 L MCH 23 L MCHC 31 L RDW 17.2 H Seg Neuts % (Manual) 96.0 H Lymphocytes % (Manual) 3.0 L Seg Neutrophils # Man 11.1 H Lymphocytes # (Manual) 0.3 L D-Dimer POC ABG pH POC ABG pCO2 POC ABG pO2 Sodium 136 L Potassium Chloride 94.2 L Carbon Dioxide BUN Glucose 137 H POC Glucose Calcium NT-Pro-B Natriuret Pep Urine Creatinine 11/23/18 11/24/18 11/24/18 04:34 04:30 04:30 WBC 16.7 H RBC Hgb 11.0 L Hct 35.4 L MCV 71 L MCH 22 L MCHC 31 L RDW 17.7 H Seg Neuts % (Manual) 97.0 H Lymphocytes % (Manual) 2.0 L Seg Neutrophils # Man 16.2 H Lymphocytes # (Manual) 0.3 L D-Dimer POC ABG pH POC ABG pCO2 POC ABG pO2 Sodium Potassium Chloride 92.6 L 92.4 L Carbon Dioxide 37 H D 35 H BUN 23 H 31 H Glucose 177 H 147 H POC Glucose Calcium 8.2 L 8.3 L NT-Pro-B Natriuret Pep Urine Creatinine 11/24/18 11:52 WBC RBC Hgb Hct MCV MCH MCHC RDW Seg Neuts % (Manual) Lymphocytes % (Manual) Seg Neutrophils # Man Lymphocytes # (Manual) D-Dimer POC ABG pH POC ABG pCO2 POC ABG pO2 Sodium Potassium Chloride Carbon Dioxide BUN Glucose POC Glucose 186 H Calcium NT-Pro-B Natriuret Pep Urine Creatinine
[2018-11-24] MEDS: LOVENOX SUB-Q SCH (21:50)
[2018-11-25 05:52] LABS: Hematocrit 36.8 % (35.5-45.6); Hemoglobin 11.3 gm/dl (11.8-15.2); Mean Corpuscular HGB Conc 31 % (32-34); Mean Corpuscular Volume 72 fl (84-94); Platelet Count 322 K/mm3 (140-440); Red Blood Count 5.13 M/mm3 (3.65-5.03); Red Cell Distribution Width 17.4 % (13.2-15.2)
[2018-11-25 06:13] LABS: BUN/Creatinine Ratio 32; Blood Urea Nitrogen 32 mg/dL (9-20); Calcium 7.7 mg/dL (8.4-10.2); Hemolysis Index 64
[2018-11-25] MEDS: LASIX IV SCH ×2 (06:23→17:17)
[2018-11-25] MEDS: SOLU-Medrol IV SCH ×4 (06:23→23:11)
[2018-11-25] MEDS: SODIUM CHLORIDE FLUSH SYRINGE 10 ML IV PRN ×2 (06:24→17:18)
[2018-11-25 06:37] LABS: Basophils % (Manual) 0 % (0.0-1.8); Eosinophils % (Manual) 0 % (0.0-4.3); Monocytes % (Manual) 0 % (0.0-7.3); Total Cells Counted 100
[2018-11-25 06:38] LABS: Anisocytosis 1+; Hypochromasia 1+; Platelet Estimate Consistent w Auto; Tear Drop Cells Few
[2018-11-25] MEDS: BROVANA NEBU IH SCH ×2 (09:01→19:54)
[2018-11-25] MEDS: PULMICORT IH SCH ×2 (09:01→19:54)
[2018-11-25] MEDS: PEPCID PO SCH ×2 (09:35→21:41)
[2018-11-25] MEDS: PROTONIX PO SCH (09:35)
[2018-11-25] MEDS: SODIUM CHLORIDE FLUSH SYRINGE 10 ML IV SCH ×2 (09:36→21:42)
[2018-11-25] MEDS: ZITHROMAX 500 MG in NACL 0.9% 250ML 250 ML IV SCH (09:39)
--- NOTE | 2018-11-25 11:00 | Ultrasound Report ---
ULTRASOUND ABDOMEN COMPLETE: TECHNIQUE: Transabdominal ultrasound with color Doppler interrogation. HISTORY: Abdominal pain and distention. COMPARISON: none. FINDINGS: LIVER: Normal. BILIARY SYSTEM: There are numerous tiny gallstones in the gallbladder. No biliary dilatation or wall thickening. The CBD measures 5 mm. PANCREAS: Normal. SPLEEN: Normal. KIDNEYS: Within normal limits. AORTA/IVC: Normal. ASCITES: None. IMPRESSION: Cholelithiasis. No evidence for acute cholecystitis.
--- NOTE | 2018-11-25 15:03 | Progress Note ---
Assessment and Plan 63 y/o male with acute exacerbation of COPD 1. Steroids decreased by primary 2. Continue BID pulmicort and brovana 3. May need to increase diuresis to achieve daily net negative balance. based on charting, remains positive daily. This could help with dypsnea. 4. Supplemental O2 Subjective Date of service: 11/25/18 Principal diagnosis: CHF exacerbation Interval history: No acute events. IMS dropped steroids down to 40q6. Objective Vital Signs - 12hr 11/25/18 11/25/18 11/25/18 04:20 04:31 08:00 Temperature 97.4 F L Pulse Rate 69 76 Pulse Rate [ 77 Anterior Bilateral Throughout] Respiratory 20 Rate Respiratory 19 Rate [Anterior Bilateral Throughout] Respiratory Rate [ Generalized] Blood Pressure 131/52 O2 Sat by Pulse 95 Oximetry 11/25/18 11/25/18 11/25/18 09:01 09:02 10:00 Temperature Pulse Rate 80 Pulse Rate [ 78 Anterior Bilateral Throughout] Respiratory Rate Respiratory 19 Rate [Anterior Bilateral Throughout] Respiratory 20 Rate [ Generalized] Blood Pressure O2 Sat by Pulse 96 Oximetry Constitutional: no acute distress, alert Eyes: non-icteric ENT: other (poor dentition) Neck: supple Effort: normal Ascultation: Bilateral: diminished breath sounds, wheezes Percussion: Bilateral: not dull Tactile fremitus: Bilateral: normal Cardiovascular: regular rate and rhythm Gastrointestinal: normoactive bowel sounds, soft, non-tender CBC and BMP: 11/25/18 04:48 11/25/18 04:48 ABG, PT/INR, D-dimer: ABG POC ABG pH 7.332 (7.35-7.45) L 11/21/18 14:37 POC ABG pCO2 62.8 (35-45) H 11/21/18 14:37 POC ABG pO2 79 (80-105) L 11/21/18 14:37 POC ABG HCO3 33.3 (22-26 mml/L) 11/21/18 14:37 POC ABG Total CO2 35 (23-27mmol/L) 11/21/18 14:37 POC ABG O2 Sat 94 11/21/18 14:37 PT/INR, D-dimer 369.06 ng/mlDDU (0-234) H 11/21/18 08:33 Abnormal lab findings: Abnormal Labs 11/21/18 11/21/18 11/21/18 08:33 08:33 08:33 WBC 13.3 H RBC Hgb 11.0 L Hct MCV 73 L MCH 22 L MCHC 31 L RDW 18.1 H Seg Neuts % (Manual) 96.0 H Lymphocytes % (Manual) 2.0 L Seg Neutrophils # Man 12.8 H Lymphocytes # (Manual) 0.3 L D-Dimer 369.06 H POC ABG pH POC ABG pCO2 POC ABG pO2 Sodium 174 H* Potassium 5.3 H Chloride 128.8 H Carbon Dioxide 31 H BUN Glucose 130 H POC Glucose Calcium NT-Pro-B Natriuret Pep Urine Creatinine 11/21/18 11/21/18 11/21/18 08:33 08:47 12:03 WBC RBC Hgb Hct MCV MCH MCHC RDW Seg Neuts % (Manual) Lymphocytes % (Manual) Seg Neutrophils # Man Lymphocytes # (Manual) D-Dimer POC ABG pH 7.289 L POC ABG pCO2 69.9 H POC ABG pO2 73 L Sodium Potassium Chloride 96.2 L Carbon Dioxide 31 H BUN Glucose 112 H POC Glucose Calcium 8.1 L NT-Pro-B Natriuret Pep 1570 H Urine Creatinine 11/21/18 11/21/18 11/22/18 14:37 22:07 04:32 WBC 15.0 H RBC 5.17 H Hgb 11.7 L Hct MCV 72 L MCH 23 L MCHC RDW 17.8 H Seg Neuts % (Manual) 97.0 H Lymphocytes % (Manual) 2.0 L Seg Neutrophils # Man 14.6 H Lymphocytes # (Manual) 0.3 L D-Dimer POC ABG pH 7.332 L POC ABG pCO2 62.8 H POC ABG pO2 79 L Sodium Potassium Chloride Carbon Dioxide BUN Glucose POC Glucose Calcium NT-Pro-B Natriuret Pep Urine Creatinine 30.5 H 11/22/18 11/22/18 11/23/18 04:32 20:28 04:34 WBC 11.6 H RBC 5.15 H Hgb 11.6 L Hct MCV 72 L MCH 23 L MCHC 31 L RDW 17.2 H Seg Neuts % (Manual) 96.0 H Lymphocytes % (Manual) 3.0 L Seg Neutrophils # Man 11.1 H Lymphocytes # (Manual) 0.3 L D-Dimer POC ABG pH POC ABG pCO2 POC ABG pO2 Sodium 136 L Potassium Chloride 94.2 L Carbon Dioxide BUN Glucose 137 H POC Glucose Calcium NT-Pro-B Natriuret Pep Urine Creatinine 11/23/18 11/24/18 11/24/18 04:34 04:30 04:30 WBC 16.7 H RBC Hgb 11.0 L Hct 35.4 L MCV 71 L MCH 22 L MCHC 31 L RDW 17.7 H Seg Neuts % (Manual) 97.0 H Lymphocytes % (Manual) 2.0 L Seg Neutrophils # Man 16.2 H Lymphocytes # (Manual) 0.3 L D-Dimer POC ABG pH POC ABG pCO2 POC ABG pO2 Sodium Potassium Chloride 92.6 L 92.4 L Carbon Dioxide 37 H D 35 H BUN 23 H 31 H Glucose 177 H 147 H POC Glucose Calcium 8.2 L 8.3 L NT-Pro-B Natriuret Pep Urine Creatinine 11/24/18 11/24/18 11/24/18 11:52 16:39 21:21 WBC RBC Hgb Hct MCV MCH MCHC RDW Seg Neuts % (Manual) Lymphocytes % (Manual) Seg Neutrophils # Man Lymphocytes # (Manual) D-Dimer POC ABG pH POC ABG pCO2 POC ABG pO2 Sodium Potassium Chloride Carbon Dioxide BUN Glucose POC Glucose 186 H 179 H 160 H Calcium NT-Pro-B Natriuret Pep Urine Creatinine 11/25/18 11/25/18 04:48 04:48 WBC 13.6 H RBC 5.13 H Hgb 11.3 L Hct MCV 72 L MCH 22 L MCHC 31 L RDW 17.4 H Seg Neuts % (Manual) 97.0 H Lymphocytes % (Manual) 3.0 L Seg Neutrophils # Man 13.2 H Lymphocytes # (Manual) 0.4 L D-Dimer POC ABG pH POC ABG pCO2 POC ABG pO2 Sodium Potassium Chloride 91.6 L Carbon Dioxide 38 H BUN 32 H Glucose 154 H POC Glucose Calcium 7.7 L NT-Pro-B Natriuret Pep Urine Creatinine
--- NOTE | 2018-11-25 19:25 | Progress Note ---
Assessment and Plan Assessment and plan: --Abdominal pain; symptoms improved, and on this ultrasound findings consistent with choleli thiasis Without cholecystitis, supportive care --Acute Mild systolic CHF Symptoms Improving , ECHO 45-50%, continue anti-failure medications Cardiology following -- SIRS (systemic inflammatory response syndrome) IV antibiotic therapy, urinalysis, CBC, CMP, chest x ray, repeat CBC in AM. --Acute hypoxic Respiratory failure Secondary to COPD exacerbation ,Supplemental oxygen, nebulizer therapy, Pulmonary following --Hypernatremia; resolved IVF resuscitation therapy, corrected Nephrology following --COPD with acute exacerbation Supplemental oxygen, titrate O2 sats to more than 90% BiPAP as needed, nebulizers, tapering dose of IV steroids, inhalation steroids Antibiotics and supportive care, pulmonary following --DVT prophylaxis SCD to BLE while in bed, Ambulate as tolerated Possible discharge home tomorrow if stable Plan of care reviewed with the patient and his nurse History Interval history: Patient seen and examined medical records reviewed Abdominal pain significantly improved Abdominal ultrasound cholelithiasis without cholecystitis No new complaints ,Vital signs noted Hospitalist Physical - Constitutional Vitals: Temp Pulse Resp BP Pulse Ox 97.8 F 85 16 140/65 95 11/25/18 18:09 11/25/18 18:09 11/25/18 18:09 11/25/18 18:09 11/25/18 18:09 General appearance: Present: no acute distress, well-nourished - EENT Eyes: Present: PERRL, EOM intact - Neck Neck: Present: supple, normal ROM - Respiratory Respiratory effort: normal Respiratory: bilateral: diminished, rales, negative: rhonchi, wheezing - Cardiovascular Rhythm: regular Heart Sounds: Present: S1 & S2 - Extremities Extremities: no ischemia, No edema - Abdominal General gastrointestinal: soft, non-tender, non-distended, normal bowel sounds - Integumentary Integumentary: Present: clear, warm - Psychiatric Psychiatric: appropriate mood/affect, cooperative - Neurologic Neurologic: CNII-XII intact, moves all extremities Results - Labs CBC & Chem 7: 11/25/18 04:48 11/25/18 04:48 Labs: Laboratory Last Values WBC 13.6 K/mm3 (4.5-11.0) H 11/25/18 04:48 RBC 5.13 M/mm3 (3.65-5.03) H 11/25/18 04:48 Hgb 11.3 gm/dl (11.8-15.2) L 11/25/18 04:48 Hct 36.8 % (35.5-45.6) 11/25/18 04:48 MCV 72 fl (84-94) L 11/25/18 04:48 MCH 22 pg (28-32) L 11/25/18 04:48 MCHC 31 % (32-34) L 11/25/18 04:48 RDW 17.4 % (13.2-15.2) H 11/25/18 04:48 Plt Count 322 K/mm3 (140-440) 11/25/18 04:48 Add Manual Diff Complete 11/25/18 04:48 Total Counted 100 11/25/18 04:48 Seg Neutrophils % [employer] Consult[employer] 11/25/18 04:48 Seg Neuts % (Manual) 97.0 % (40.0-70.0) H 11/25/18 04:48 0 % 11/25/18 04:48 3.0 % (13.4-35.0) L 11/25/18 04:48 Reactive Lymphs % (Man) 0 % 11/25/18 04:48 0 % (0.0-7.3) 11/25/18 04:48 0 % (0.0-4.3) 11/25/18 04:48 0 % (0.0-1.8) 11/25/18 04:48 0 % 11/25/18 04:48 0 % 11/25/18 04:48 0 % 11/25/18 04:48 0 % 11/25/18 04:48 Nucleated RBC % Not Reportable 11/25/18 04:48 Seg Neutrophils # Man 13.2 K/mm3 (1.8-7.7) H 11/25/18 04:48 Band Neutrophils # 0.0 K/mm3 11/25/18 04:48 0.4 K/mm3 (1.2-5.4) L 11/25/18 04:48 Abs React Lymphs (Man) 0.0 K/mm3 11/25/18 04:48 0.0 K/mm3 (0.0-0.8) 11/25/18 04:48 0.0 K/mm3 (0.0-0.4) 11/25/18 04:48 0.0 K/mm3 (0.0-0.1) 11/25/18 04:48 0.0 K/mm3 11/25/18 04:48 0.0 K/mm3 11/25/18 04:48 0.0 K/mm3 11/25/18 04:48 Blast Cells # 0.0 K/mm3 11/25/18 04:48 WBC Morphology Not Reportable 11/25/18 04:48 WBC Morphology TNR 11/25/18 04:48 Hypersegmented Neuts Not Reportable 11/25/18 04:48 Hyposegmented Neuts Not Reportable 11/25/18 04:48 Hypogranular Neuts Not Reportable 11/25/18 04:48 Not Reportable 11/25/18 04:48 Not Reportable 11/25/18 04:48 Not Reportable 11/25/18 04:48 Not Reportable 11/25/18 04:48 Not Reportable 11/25/18 04:48 Not Reportable 11/25/18 04:48 Consistent w auto 11/25/18 04:48 Not Reportable 11/25/18 04:48 Plt Clumps, EDTA Not Reportable 11/25/18 04:48 Not Reportable 11/25/18 04:48 Not Reportable 11/25/18 04:48 Not Reportable 11/25/18 04:48 Plt Morphology Comment Not Reportable 11/25/18 04:48 RBC Morphology Not Reportable 11/25/18 04:48 Dimorphic RBCs Not Reportable 11/25/18 04:48 Not Reportable 11/25/18 04:48 1+ 11/25/18 04:48 Not Reportable 11/25/18 04:48 1+ 11/25/18 04:48 Not Reportable 11/25/18 04:48 Not Reportable 11/25/18 04:48 Not Reportable 11/25/18 04:48 Not Reportable 11/25/18 04:48 Not Reportable 11/25/18 04:48 Not Reportable 11/25/18 04:48 Few 11/25/18 04:48 Not Reportable 11/25/18 04:48 Not Reportable 11/25/18 04:48 Not Reportable 11/25/18 04:48 Not Reportable 11/25/18 04:48 Not Reportable 11/25/18 04:48 Not Reportable 11/25/18 04:48 Not Reportable 11/25/18 04:48 Not Reportable 11/25/18 04:48 Acanthocytes (Spur) Not Reportable 11/25/18 04:48 Rouleaux Not Reportable 11/25/18 04:48 Not Reportable 11/25/18 04:48 Not Reportable 11/25/18 04:48 Not Reportable 11/25/18 04:48 Not Reportable 11/25/18 04:48 Hem Pathologist Commnt No 11/25/18 04:48 369.06 ng/mlDDU (0-234) H 11/21/18 08:33 POC ABG pH 7.332 (7.35-7.45) L 11/21/18 14:37 POC ABG pCO2 62.8 (35-45) H 11/21/18 14:37 POC ABG pO2 79 (80-105) L 11/21/18 14:37 POC ABG HCO3 33.3 (22-26 mml/L) 11/21/18 14:37 POC ABG Total CO2 35 (23-27mmol/L) 11/21/18 14:37 POC ABG O2 Sat 94 11/21/18 14:37 POC ABG Base Excess 7 ((-2) - (+3)mmol/L) 11/21/18 14:37 30 % 11/21/18 14:37 Sodium 141 mmol/L (137-145) 11/25/18 04:48 Potassium 4.3 mmol/L (3.6-5.0) 11/25/18 04:48 Chloride 91.6 mmol/L (98-107) L 11/25/18 04:48 Carbon Dioxide 38 mmol/L (22-30) H 11/25/18 04:48 16 mmol/L 11/25/18 04:48 BUN 32 mg/dL (9-20) H 11/25/18 04:48 1.0 mg/dL (0.8-1.5) 11/25/18 04:48 Estimated GFR > 60 ml/min 11/25/18 04:48 32 % 11/25/18 04:48 Glucose 154 mg/dL (75-100) H 11/25/18 04:48 POC Glucose 160 (70-105) H 11/24/18 21:21 Calcium 7.7 mg/dL (8.4-10.2) L 11/25/18 04:48 Phosphorus 3.70 mg/dL (2.5-4.5) 11/25/18 04:48 < 0.010 ng/mL (0.00-0.029) 11/22/18 10:07 NT-Pro-B Natriuret Pep 1570 pg/mL (0-900) H 11/21/18 08:33 Straw (Yellow) 11/21/18 22:07 Clear (Clear) 11/21/18 22:07 5.0 (5.0-7.0) 11/21/18 22:07 Ur Specific [place] 1.008 (1.003-1.030) 11/21/18 22:07 <15 mg/dl mg/dL (Negative) 11/21/18 22:07 Neg mg/dL (Negative) 11/21/18 22:07 Neg mg/dL (Negative) 11/21/18 22:07 Sm (Negative) 11/21/18 22:07 Neg (Negative) 11/21/18 22:07 Neg (Negative) 11/21/18 22:07 < 2.0 mg/dL (<2.0) 11/21/18 22:07 Ur Leukocyte Esterase Neg (Negative) 11/21/18 22:07 1.0 /HPF (0.0-6.0) 11/21/18 22:07 < 1.0 /HPF (0.0-6.0) 11/21/18 22:07 U Epithel Cells (Auto) < 1.0 /HPF (0-13.0) 11/21/18 22:07 Hyaline Casts 1 /LPF 11/21/18 22:07 Few /HPF 11/21/18 22:07 325 Mosm/kg 11/21/18 22:07 30.5 mg/dL (0.1-20.0) H 11/21/18 22:07 98 mmol/L 11/21/18 22:07 Active Medications - Current Medications Current Medications: Generic Name Dose Route Start Last Admin Trade Name Freq PRN Reason Stop Dose Admin Acetaminophen 650 mg 11/21/18 12:11 Tylenol PO Q4H PRN Pain MILD(1-3)/Fever >100.5/BLOOM Albuterol 2.5 mg 11/21/18 12:11 11/22/18 02:51 Proventil IH 2.5 mg Q4HRT PRN Administration Shortness Of Breath Arformoterol Tartrate 15 mcg 11/22/18 13:15 11/25/18 09:01 Brovana Nebu IH 15 mcg Q12HRT ANNE Administration Atorvastatin Calcium 40 mg 11/21/18 22:00 11/24/18 21:49 Lipitor PO 40 mg QHS ANNE Administration Budesonide 0.5 mg 11/22/18 13:15 11/25/18 09:01 Pulmicort IH 0.5 mg Q12HRT ANNE Administration Enoxaparin Sodium 40 mg 11/24/18 22:00 11/24/18 21:50 Lovenox SUB-Q 40 mg QDAY@2200 ANNE Administration Famotidine 20 mg 11/21/18 22:00 11/25/18 09:35 Pepcid PO 20 mg BID ANNE Administration Furosemide 20 mg 11/21/18 18:00 11/25/18 17:17 Lasix IV 20 mg BID@0600,1800 ANNE Administration Azithromycin 500 mg/ Sodium 250 mls @ 250 mls/hr 11/22/18 10:00 11/25/18 09:39 Chloride IV 250 mls/hr Q24HR ANNE Administration Methylprednisolone Sodium Succinate 40 mg 11/24/18 12:00 11/25/18 17:17 Solu-Medrol IV 40 mg Q6HR ANNE Administration Miscellaneous Medication 500 mcg 11/22/18 10:00 Roflumilast [Daliresp] PO QDAY ANNE Ondansetron HCl 4 mg 11/21/18 12:11 Zofran IV Q8H PRN Nausea And Vomiting Pantoprazole Sodium 40 mg 11/22/18 10:00 11/25/18 09:35 Protonix PO 40 mg DAILY ANNE Administration Sodium Chloride 10 ml 11/21/18 22:00 11/25/18 09:36 Sodium Chloride Flush Syringe 10 Ml IV 10 ml BID ANNE Administration Sodium Chloride 10 ml 11/21/18 12:11 11/25/18 17:18 Sodium Chloride Flush Syringe 10 Ml IV 10 ml PRN PRN Administration LINE FLUSH
[2018-11-25] MEDS: LOVENOX SUB-Q SCH (21:41)
[2018-11-26] MEDS: SOLU-Medrol IV SCH (05:01)
[2018-11-26] MEDS: LASIX IV SCH (05:01)
[2018-11-26 06:23] LABS: Hematocrit 36.4 % (35.5-45.6); Hemoglobin 11.3 gm/dl (11.8-15.2); Mean Corpuscular HGB Conc 31 % (32-34); Mean Corpuscular Volume 72 fl (84-94); Platelet Count 284 K/mm3 (140-440); Red Blood Count 5.04 M/mm3 (3.65-5.03); Red Cell Distribution Width 17.3 % (13.2-15.2)
[2018-11-26 06:42] LABS: BUN/Creatinine Ratio 28; Blood Urea Nitrogen 31 mg/dL (9-20); Calcium 7.7 mg/dL (8.4-10.2); Hemolysis Index 3
[2018-11-26 07:37] LABS: Anisocytosis 2+; Basophils % (Manual) 0 % (0.0-1.8); Eosinophils % (Manual) 0 % (0.0-4.3); Ovalocytes 1+; Poikilocytosis 1+; Tear Drop Cells Few; Total Cells Counted 100
[2018-11-26 07:38] LABS: Hypochromasia 1+; Platelet Estimate Consistent w Auto
[2018-11-26 07:44] VITALS: BP 144/73
--- NOTE | 2018-11-26 09:04 | Discharge Summary ---
Providers - Providers Date of Admission: 11/21/18 13:24 Date of discharge: 11/26/18 Attending physician: GERMAIN COSTA 11/21/18 10:03 Consult to Physician [CONS] Routine Comment: Consulting Provider: KENNA DOCKERY Physician Instructions: Reason For Exam: hypernatremia 11/21/18 12:15 Consult to Physician [CONS] Routine Comment: Consulting Provider: AUDI JOHN Physician Instructions: Reason For Exam: Respiratory Failure 11/21/18 13:36 Consult to Physician [CONS] Routine Comment: Consulting Provider: CYRUS SORENSON Physician Instructions: Reason For Exam: CHF 11/26/18 07:10 Physical Therapy Evaluation and Treat [CONS] Routine Comment: Reason For Exam: maintain mobility and range Primary care physician: BRIM FLEXER Hospitalization Reason for admission: Worsening shortness of breath/Respiratory failure Condition: Stable Pertinent studies: CXR,no acute abnormality ECHO : EF 45-50% Abd US:Cholelithiasis,no cholecystitis VQ scan : low probability for PE Hospital course: 63 YO Male patient with HTN, Systolic CHF, COPD, CAD S/P Stent placement was a dmited through ER with worsening shortness of breath, wheezing, and increased frequency of productive cough with increased production of clear sputum over the past 1 week with worsening symptoms over the past 1 day. Pt was seen and evaluated by telephone lineman Dr. John and treated with outpatient therapy with no improvement in symptoms. Pt seen and evaluated in ED and found to have Acute Respiratory Failure secondary to COPD Exacerbation. Pt also found to have symptoms consistent with CHF decompensation, SIRS and hypernatremia. Pt admitted to telemetry. Symptomatically managed, evaluated by pulmonary and cardiology. Madications optimised. Symptoms significantly improved,today patient is comfortable,no new complaints,vitals stable physical exam unremarkable. Patient is stable at discharge Patient would follow with PMD,Cardiology and pulmonary per schedule Dischsrge Diagnosis: --Acute hypoxic Respiratory failure Secondary to COPD exacerbation ,Supplemental oxygen, nebulizer therapy, Pulmonary following --Hypernatremia; resolved IVF resuscitation therapy, corrected Nephrology following --COPD with acute exacerbation Supplemental oxygen, titrate O2 sats to more than 90% BiPAP as needed, nebulizers, tapering dose of IV steroids, inhalation steroids Antibiotics and supportive care, pulmonary following --Abdominal pain; symptoms improved, and on this ultrasound findings consistent with cholelithiasis Without cholecystitis, supportive care --Acute on chronic Mild systolic CHF Symptoms Improving , ECHO 45-50%, continue anti-failure medications Cardiology following -- SIRS (systemic inflammatory response syndrome) IV antibiotic therapy, urinalysis, CBC, CMP, chest x ray, repeat CBC in AM. --DVT prophylaxis SCD to BLE while in bed, Ambulate as tolerated, Stable at discharge Plan of care reviewed with the patient and his nurse Disposition: DC-01 TO HOME OR SELFCARE Time spent for discharge: 32 min Core Measure Documentation - Palliative Care Palliative Care/ Comfort Measures: Not Applicable - Core Measures Any of the following diagnoses?: none Exam - Constitutional Vitals: Temp Pulse Resp BP Pulse Ox 98.5 F 76 18 144/73 96 11/26/18 07:42 11/26/18 07:42 11/26/18 07:42 11/26/18 07:42 11/26/18 07:42 General appearance: Present: no acute distress, well-nourished - EENT Eyes: Present: PERRL, EOM intact - Neck Neck: Present: supple, normal ROM - Respiratory Respiratory effort: normal Respiratory: bilateral: diminished, negative: rales, rhonchi, wheezing - Cardiovascular Rhythm: regular Heart Sounds: Present: S1 & S2 - Extremities Extremities: no ischemia, No edema - Abdominal General gastrointestinal: Present: soft, non-tender, non-distended, normal bowel sounds - Integumentary Integumentary: Present: clear, warm - Musculoskeletal Musculoskeletal: strength equal bilaterally - Psychiatric Psychiatric: appropriate mood/affect, cooperative - Neurologic Neurologic: CNII-XII intact, moves all extremities Plan Activity: advance as tolerated, fall precautions Diet: low salt Additional Instructions: cont home o2 as before If you have shortness of breath or chest pain ,contact MD or go to ER Follow up with: JAIDEN ROSALES MD [Referring] - 3-5 Days MAVIS YEUNG MD [Staff Physician] - 14 Days Prescriptions: predniSONE [Deltasone] 10 mg PO .TAPER #52 tablet Azithromycin [Zithromax TAB] 500 mg PO QDAY #3 tablet
[2018-11-26] MEDS: PULMICORT IH SCH (09:45)
[2018-11-26] MEDS: BROVANA NEBU IH SCH (09:45)
[2018-11-26] MEDS: PROTONIX PO SCH (10:46)
[2018-11-26] MEDS: PEPCID PO SCH (10:46)
[2018-11-26] MEDS: SODIUM CHLORIDE FLUSH SYRINGE 10 ML IV SCH (10:47)
[2018-11-26] MEDS: ZITHROMAX 500 MG in NACL 0.9% 250ML 250 ML IV SCH (10:53)
--- NOTE | 2018-11-26 11:42 | Progress Note ---
Assessment and Plan 63 y/o male with acute exacerbation of COPD 1. Steroid taper sent to [facility] 2. Abx for a total of 8 days including what was given in house 3. Follow up with Alvaro in 10-14 days 4. continue diuretic if not already on this at home no objection to discharge. Subjective Date of service: 11/26/18 Principal diagnosis: CHF exacerbation Interval history: Patient being discharged today. Stable. Objective Vital Signs - 12hr 11/26/18 11/26/18 11/26/18 00:22 02:54 03:55 Temperature 97.5 F L Pulse Rate 80 79 73 Respiratory 23 21 20 Rate Blood Pressure 134/72 O2 Sat by Pulse 98 98 95 Oximetry 11/26/18 07:42 Temperature 98.5 F Pulse Rate 76 Respiratory 18 Rate Blood Pressure 144/73 O2 Sat by Pulse 96 Oximetry Constitutional: no acute distress, alert Eyes: non-icteric ENT: other (poor dentition) Neck: supple Effort: normal Ascultation: Bilateral: diminished breath sounds, wheezes Percussion: Bilateral: not dull Tactile fremitus: Bilateral: normal Cardiovascular: regular rate and rhythm Gastrointestinal: normoactive bowel sounds, soft, non-tender CBC and BMP: 11/26/18 04:13 11/26/18 04:13 ABG, PT/INR, D-dimer: ABG POC ABG pH 7.332 (7.35-7.45) L 11/21/18 14:37 POC ABG pCO2 62.8 (35-45) H 11/21/18 14:37 POC ABG pO2 79 (80-105) L 11/21/18 14:37 POC ABG HCO3 33.3 (22-26 mml/L) 11/21/18 14:37 POC ABG Total CO2 35 (23-27mmol/L) 11/21/18 14:37 POC ABG O2 Sat 94 11/21/18 14:37 PT/INR, D-dimer 369.06 ng/mlDDU (0-234) H 11/21/18 08:33 Abnormal lab findings: Abnormal Labs 11/21/18 11/21/18 11/21/18 08:33 08:33 08:33 WBC 13.3 H RBC Hgb 11.0 L Hct MCV 73 L MCH 22 L MCHC 31 L RDW 18.1 H Seg Neuts % (Manual) 96.0 H Lymphocytes % (Manual) 2.0 L Seg Neutrophils # Man 12.8 H Lymphocytes # (Manual) 0.3 L D-Dimer 369.06 H POC ABG pH POC ABG pCO2 POC ABG pO2 Sodium 174 H* Potassium 5.3 H Chloride 128.8 H Carbon Dioxide 31 H BUN Glucose 130 H POC Glucose Calcium NT-Pro-B Natriuret Pep Urine Creatinine 11/21/18 11/21/18 11/21/18 08:33 08:47 12:03 WBC RBC Hgb Hct MCV MCH MCHC RDW Seg Neuts % (Manual) Lymphocytes % (Manual) Seg Neutrophils # Man Lymphocytes # (Manual) D-Dimer POC ABG pH 7.289 L POC ABG pCO2 69.9 H POC ABG pO2 73 L Sodium Potassium Chloride 96.2 L Carbon Dioxide 31 H BUN Glucose 112 H POC Glucose Calcium 8.1 L NT-Pro-B Natriuret Pep 1570 H Urine Creatinine 11/21/18 11/21/18 11/22/18 14:37 22:07 04:32 WBC 15.0 H RBC 5.17 H Hgb 11.7 L Hct MCV 72 L MCH 23 L MCHC RDW 17.8 H Seg Neuts % (Manual) 97.0 H Lymphocytes % (Manual) 2.0 L Seg Neutrophils # Man 14.6 H Lymphocytes # (Manual) 0.3 L D-Dimer POC ABG pH 7.332 L POC ABG pCO2 62.8 H POC ABG pO2 79 L Sodium Potassium Chloride Carbon Dioxide BUN Glucose POC Glucose Calcium NT-Pro-B Natriuret Pep Urine Creatinine 30.5 H 11/22/18 11/22/18 11/23/18 04:32 20:28 04:34 WBC 11.6 H RBC 5.15 H Hgb 11.6 L Hct MCV 72 L MCH 23 L MCHC 31 L RDW 17.2 H Seg Neuts % (Manual) 96.0 H Lymphocytes % (Manual) 3.0 L Seg Neutrophils # Man 11.1 H Lymphocytes # (Manual) 0.3 L D-Dimer POC ABG pH POC ABG pCO2 POC ABG pO2 Sodium 136 L Potassium Chloride 94.2 L Carbon Dioxide BUN Glucose 137 H POC Glucose Calcium NT-Pro-B Natriuret Pep Urine Creatinine 11/23/18 11/24/18 11/24/18 04:34 04:30 04:30 WBC 16.7 H RBC Hgb 11.0 L Hct 35.4 L MCV 71 L MCH 22 L MCHC 31 L RDW 17.7 H Seg Neuts % (Manual) 97.0 H Lymphocytes % (Manual) 2.0 L Seg Neutrophils # Man 16.2 H Lymphocytes # (Manual) 0.3 L D-Dimer POC ABG pH POC ABG pCO2 POC ABG pO2 Sodium Potassium Chloride 92.6 L 92.4 L Carbon Dioxide 37 H D 35 H BUN 23 H 31 H Glucose 177 H 147 H POC Glucose Calcium 8.2 L 8.3 L NT-Pro-B Natriuret Pep Urine Creatinine 11/24/18 11/24/18 11/24/18 11:52 16:39 21:21 WBC RBC Hgb Hct MCV MCH MCHC RDW Seg Neuts % (Manual) Lymphocytes % (Manual) Seg Neutrophils # Man Lymphocytes # (Manual) D-Dimer POC ABG pH POC ABG pCO2 POC ABG pO2 Sodium Potassium Chloride Carbon Dioxide BUN Glucose POC Glucose 186 H 179 H 160 H Calcium NT-Pro-B Natriuret Pep Urine Creatinine 11/25/18 11/25/18 11/26/18 04:48 04:48 04:13 WBC 13.6 H RBC 5.13 H 5.04 H Hgb 11.3 L 11.3 L Hct MCV 72 L 72 L MCH 22 L 22 L MCHC 31 L 31 L RDW 17.4 H 17.3 H Seg Neuts % (Manual) 97.0 H 95.0 H Lymphocytes % (Manual) 3.0 L 3.0 L Seg Neutrophils # Man 13.2 H 10.0 H Lymphocytes # (Manual) 0.4 L 0.3 L D-Dimer POC ABG pH POC ABG pCO2 POC ABG pO2 Sodium Potassium Chloride 91.6 L Carbon Dioxide 38 H BUN 32 H Glucose 154 H POC Glucose Calcium 7.7 L NT-Pro-B Natriuret Pep Urine Creatinine 11/26/18 11/26/18 04:13 07:48 WBC RBC Hgb Hct MCV MCH MCHC RDW Seg Neuts % (Manual) Lymphocytes % (Manual) Seg Neutrophils # Man Lymphocytes # (Manual) D-Dimer POC ABG pH POC ABG pCO2 POC ABG pO2 Sodium Potassium Chloride 93.4 L Carbon Dioxide 40 H BUN 31 H Glucose 144 H POC Glucose 143 H Calcium 7.7 L NT-Pro-B Natriuret Pep Urine Creatinine
== END 2018-11-26 13:19 | disposition home or self-care (01) | DRG 291 ==
LOC: ED 08:06 → IMCU 13:24 → 4A 11-22 00:04
PROVIDERS: ADMIT Internal Medicine; ATTEND Internal Medicine
PROC: 4A033R1 Measurement of Arterial Saturation, Peripheral, Percutaneous Approach (ICD-10-PCS; principal; 2018-11-21)
PROC: 5A09457 Assistance with Respiratory Ventilation, 24-96 Consecutive Hours, Continuous Positive Airway Pressure (ICD-10-PCS; 2018-11-21)
PROC: 5A09357 Assistance with Respiratory Ventilation, Less than 24 Consecutive Hours, Continuous Positive Airway Pressure (ICD-10-PCS; 2018-11-26)
DX: I11.0 Hypertensive heart disease with heart failure (principal); J96.01 Acute respiratory failure with hypoxia; I50.21 Acute systolic (congestive) heart failure; N17.9 Acute kidney failure, unspecified; E87.0 Hyperosmolality and hypernatremia; J44.1 Chronic obstructive pulmonary disease with (acute) exacerbation; R65.10 Systemic inflammatory response syndrome (SIRS) of non-infectious origin without acute organ dysfunction; K80.20 Calculus of gallbladder without cholecystitis without obstruction; E66.9 Obesity, unspecified; I25.10 Atherosclerotic heart disease of native coronary artery without angina pectoris; Z95.5 Presence of coronary angioplasty implant and graft; Z82.49 Family history of ischemic heart disease and other diseases of the circulatory system; Z79.899 Other long term (current) drug therapy
CPT/HCPCS: 36415; 36600; 71045; 76700; 78582; 80048; 81001; 82570; 82803; 82962; 83880; 83935; 84100; 84295; 84300; 84484; 85007; 85025; 85379; 93005; 93010; 93306; 94640; 94644; 94660; 94760; 96365; G0378; A9270-GY; A9540; A9558; J0456; J1650; J1940; J2920; J2930; J7050; J7070